=== PATIENT | female | born 1980 | race Caucasian/White ===

== ENCOUNTER 2021-04-14 13:41 | Observation (INO) | payer BC, MEDICAID, SELFPAY ==
[2021-04-14 14:06] VITALS: BP 129/65; PULSE 80
[2021-04-14 14:50] VITALS: TEMP 37.3
--- NOTE | 2021-04-14 14:53 | OBADM ---
This patient, Jm Mcneill, admitted to the OB room [facility] Post [facility] for observation. Patient/family oriented to hospital policies and general routines including ID bracelet, bed and alarms, visiting hours, pain management, procedures, bathroom and other care routines, personal items, smoking policy, room service/diet, and visiting hours. Patient/Family are encouraged to report perceived risks to care and to ask questions if they do not understand what they are told or what they should do.
[2021-04-14 15:06] LABS: Add Urine Microscopic? YES; Appearance Urine Clear (Clear); Bacteria Urine Trace /hpf; Bilirubin Urine Negative (Negative); Blood Urine Negative (Negative); Color Urine Yellow (Yellow); Glucose Urine UA Negative (Negative); Ketones Urine 1+ mg/dL (Negative); Leukocyte Esterase Ur Negative LEU/UL (Negative); Mucus Urine Rare /lpf; Nitrate Urine Negative (Negative); Protein Urine Negative (Negative); RBC Urine 0-2 /hpf (0-2); Specific Grav Ur 1.016 (1.001-1.035); Squamous Epithelial Cell Urine Occasional /hpf (Few); Urobilinogen Urine Negative mg/dL (<2.0); WBC Urine 0-3 /hpf
--- NOTE | 2021-04-14 15:47 | PC.NURSE ---
1515- called,informed pt came in from seeing MFM. She had told the office she has intermittent cramping and has been having pelvic pressure. Pt has had zero contractions here and stated she doesn't feel any pain once she got here and laid down. Pt wants a belly band to wear, is ordering that for her and gave order to discharge pt home.
--- NOTE | 2021-04-19 07:49 | P.PNOB_ITS ---
OB - Triage/Final Diagnosis Visit Information Comments/Additional reasons for admission: I have assessed the risk for this patient, Jm Mcneill, and determined that she would benefit from observation care. Evaluation Laboratory results: Laboratory Tests 04/14/21 14:35 Urine Color Yellow Urine Appearance Clear Urine pH 7.0 Ur Specific [place] 1.016 Urine Protein Negative Urine Glucose (UA) Negative Urine Ketones 1+ H Ur Blood (Man) Negative Urine Nitrate Negative Urine Bilirubin Negative Urine Urobilinogen Negative Leukocyte Esterase Rfl Negative Urine RBC 0-2 Urine WBC 0-3 Ur Squamous Epith Cells Occasional Urine Bacteria Trace Urine Mucus Rare Final Diagnosis (1) Pelvic pressure in : Code(s): O26.899 - Other specified related conditions, unspecified trimester; R10.2 - Pelvic and perineal pain Status: Acute
== END 2021-04-14 15:25 | disposition home or self-care (01) ==
PROVIDERS: Admitting Provider Obstetrics & Gynecology; PCP Physician Assistant; Visit Provider Obstetrics & Gynecology
DX: O26.893 Other specified pregnancy related conditions, third trimester (principal); R10.2 Pelvic and perineal pain; Z3A.31 31 weeks gestation of pregnancy
CPT/HCPCS: 81001; G0378; G0379

== ENCOUNTER 2021-04-29 14:15 | Outpatient (CLI) | payer BC, MEDICAID, SELFPAY ==
[2021-04-29 15:00] VITALS: BP 115/62; PULSE 98
--- NOTE | 2021-04-29 15:10 | PC.NURSE ---
1500- called,informed ROM plus is negative. NST reactive. Pt was sent over from office after stating she had a gush of fluid . Discharge orders received.
== END 2021-04-29 15:10 | disposition home or self-care (01) ==
LOC: ANHOBOP 15:18 → ANHLDR 15:20
PROVIDERS: PCP Physician Assistant; Referring Provider Obstetrics & Gynecology; Visit Provider Obstetrics & Gynecology
DX: O42.90 Premature rupture of membranes, unspecified as to length of time between rupture and onset of labor, unspecified weeks of gestation (principal); Z3A.00 Weeks of gestation of pregnancy not specified
CPT/HCPCS: 59025; 84112; 99199

== ENCOUNTER 2021-05-13 13:51 | Observation (INO) | payer BC, MEDICAID, SELFPAY ==
[2021-05-13 14:15] VITALS: BP 118/73; PULSE 78; BMI 42.3
[2021-05-13 14:30] VITALS: BP 117/70; PULSE 73
[2021-05-13 14:45] VITALS: BP 120/70; PULSE 75
[2021-05-13 15:00] VITALS: BP 109/74; PULSE 77
--- NOTE | 2021-05-13 15:11 | PC.NURSE ---
Dr Ibanez notified of adm c/o cramping and abd pain and that patient is feeling better after rest. OK to dc home.
[2021-05-13 15:15] VITALS: BP 123/87; PULSE 75
[2021-05-13 15:30] VITALS: BP 122/74; PULSE 88
--- NOTE | 2021-06-08 08:11 | PM.OBTRLD ---
OB - Triage/Final Diagnosis Visit Information Comments/Additional reasons for admission: I have assessed the risk for this patient, Jm Mcneill, and determined that she would benefit from observation care. Final Diagnosis (1) Abdominal pain: Code(s): R10.9 - Unspecified abdominal pain Status: Acute
== END 2021-05-13 15:50 | disposition home or self-care (01) ==
PROVIDERS: Admitting Provider Obstetrics & Gynecology; PCP Physician Assistant; Visit Provider Obstetrics & Gynecology
DX: O26.899 Other specified pregnancy related conditions, unspecified trimester (principal); R10.9 Unspecified abdominal pain; Z3A.00 Weeks of gestation of pregnancy not specified
CPT/HCPCS: G0378; G0379

== ENCOUNTER 2021-05-28 14:25 | Observation (INO) | payer BC, MEDICAID, SELFPAY ==
[2021-05-28 14:35] VITALS: BP 145/87; PULSE 86
--- NOTE | 2021-05-28 16:36 | OBADM ---
This patient, Jm Mcneill, admitted to the OB room Labor/Delivery/Recovery 118 for observation. Patient/family oriented to hospital policies and general routines including ID bracelet, bed and alarms, visiting hours, pain management, procedures, bathroom and other care routines, personal items, smoking policy, room service/diet, and visiting hours. Patient/Family are encouraged to report perceived risks to care and to ask questions if they do not understand what they are told or what they should do.
--- NOTE | 2021-06-28 21:56 | PM.OBTRLD ---
OB - Triage/Final Diagnosis Visit Information Comments/Additional reasons for admission: I have assessed the risk for this patient, Jm Mcneill, and determined that she would benefit from observation care. Final Diagnosis (1) False labor: Code(s): O47.9 - False labor, unspecified Status: Acute
== END 2021-05-28 16:44 | disposition home or self-care (01) ==
LOC: ANHLDR 06-01 10:45
PROVIDERS: Admitting Provider Obstetrics & Gynecology; PCP Physician Assistant; Visit Provider Obstetrics & Gynecology
DX: O47.1 False labor at or after 37 completed weeks of gestation (principal); Z3A.37 37 weeks gestation of pregnancy
CPT/HCPCS: 59025; G0378; G0379

== ENCOUNTER 2021-05-31 16:33 | Inpatient (IN) | payer BC, MEDICAID, SELFPAY ==
[2021-05-31 17:46] VITALS: BMI 42.5
[2021-05-31 17:55] LABS: Basophils Percent Auto 0.3 % (0.2-1.2); Eosinophils Absolute Auto 0.3 K/mm3 (0-0.3); Eosinophils Percent Auto 1.9 % (0-4.4); Hemoglobin 13.4 g/dL (12.0-15.0); Immature Granulocyte Absolute 0.07 K/mm3 (0.00-0.031); Immature Granulocyte Percent A 0.5 % (0-0.5); Lymphocytes Absolute Auto 2.62 K/mm3 (0.9-3.2); Lymphocytes Percent Auto 19.1 % (18.3-44.2); Mean Corpuscular HGB Conc 32.7 g/dl (32-36); Mean Corpuscular Hemoglobin 29.3 pg (26-34); Mean Corpuscular Volume 89.7 fl (80-100); Mean Platelet Volume 10.4 fl (7.4-10.4); Monocytes Absolute Auto 0.9 K/mm3 (0.1-0.6); Monocytes Percent Auto 6.3 % (2.6-8.5); Neutrophils Absolute Auto 9.9 K/mm3 (1.3-6.7); Neutrophils Percent Auto 71.9 % (45.5-73.1); Platelet Count Result 272 k/mm3 (150-375); Red Blood Count 4.57 M/mm3 (4.2-5.4); Red Cell Distribution Width 13.9 % (11.5-14.5); White Blood Count 13.7 K/mm3 (4.5-10.0)
[2021-05-31] MEDS: DINOPROSTONE 10 MG VAG INSERT VAGINAL (17:55)
[2021-05-31 18:02] VITALS: BP 129/70; PULSE 98
--- NOTE | 2021-05-31 18:05 | LDADM ---
This patient, Jm Mcneill, was admitted to Labor/Delivery/Recovery 103 on 05/31/21 at 16:33. Plans for labor, pain management and were discussed with patient. Patient/family oriented to hospital policies and general routines including ID bracelet, bed and alarms, visiting hours, pain management, procedures, bathroom and other care routines, personal items, smoking policy, room service/diet and guest tray routines, security routines, and visiting hours. Patient/Family are encouraged to report perceived risks to care and to ask questions if they do not understand what they are told or what they should do. See OBIX for further documentation.
[2021-05-31 18:20] LABS: Glucose Point of Care 81 mg/dl (65-105)
[2021-05-31 18:31] VITALS: BP 119/86; PULSE 83
[2021-05-31 19:01] VITALS: BP 119/86; PULSE 83
[2021-05-31 19:31] VITALS: BP 97/69; PULSE 83
[2021-05-31 20:01] VITALS: BP 117/79; PULSE 77
[2021-05-31 20:31] VITALS: BP 133/83; PULSE 79
[2021-05-31] MEDS: ZOLPIDEM TARTRATE (*CRX) 5 MG TABLET PO (22:54)
[2021-05-31 22:58] LABS: Glucose Point of Care 136 mg/dl (65-105)
[2021-05-31] MEDS: SERTRALINE HCL 50 MG TABLET 200 MG PO (23:10)
[2021-05-31] MEDS: INSULIN HUMAN NPH (*BKC) 100 UNITS/ML 20 UNITS SUB-Q (23:11)
[2021-06-01] VITALS (163 sets, daily range): BP systolic 94–202; BP diastolic 52–169; PULSE 60–140; RESP 18–19; TEMP 36–36.8; O2SAT 94–100
[2021-06-01 02:53] LABS: Glucose Point of Care 120 mg/dl (65-105)
[2021-06-01] MEDS: CALCIUM CARBONATE (TUMS) 500 MG (200 MG ELEMENTAL) PO (04:20)
[2021-06-01] MEDS: INSULIN HUMAN NPH (*BKC) 100 UNITS/ML 10 UNITS SUB-Q (06:38)
[2021-06-01] MEDS: fentaNYL CITRATE INJ (*CRX) 100 MCG/2 ML VIAL 50 MCG IV PUSH (06:46)
--- NOTE | 2021-06-01 07:42 | WPDANESEPP ---
Anes - Eval Pre Procedure Procedure: labor epidural Date/Time: 06/01/21 07:42 Surgeon: sera Preop Diagnosis: pain during labor Pre Op Diagnosis: Induction of Labor Patient Data Age: 41 Gender: F Height: 1.7 m Weight: 123 kg Last Vital Signs Temp 36.0 C L 06/01/21 06:48 Pulse 106 H 06/01/21 04:09 BP 141/97 H 06/01/21 04:09 Allergies Allergy/AdvReac Type Severity Reaction Status Date / Time No Known Allergies Allergy Verified 05/25/21 12:54 Home Medications Medication Instructions Recorded Confirmed Type Zyrtec 10 mg PO DAILY 05/25/21 05/28/21 History aspirin [Aspirin Low Dose] 81 mg PO DAILY 05/25/21 05/28/21 History famotidine [Pepcid] 20 mg PO BID 05/25/21 05/28/21 History prenat.vits,marcelino,[id number]-[id number]-[id number] 1 tablet PO DAILY 05/25/21 05/28/21 History sertraline 200 mg PO DAILY 05/25/21 05/31/21 History insulin detemir U-100 [Levemir 20 unit SUBCUT QAM 05/31/21 05/31/21 History FlexTouch U-100 Insuln] insulin detemir U-100 [Levemir 26 unit SUBCUT QPM 05/31/21 05/31/21 History FlexTouch U-100 Insuln] Laboratory Tests 05/31/21 05/31/21 05/31/21 17:45 17:45 17:45 WBC 13.7 K/mm3 H K/mm3 (4.5-10.0) RBC 4.57 M/mm3 M/mm3 (4.2-5.4) Hgb 13.4 g/dL g/dL (12.0-15.0) Hct 41.0 % % (37.0-47.0) MCV 89.7 fl fl (80-100) MCH 29.3 pg pg (26-34) MCHC 32.7 g/dl g/dl (32-36) RDW 13.9 % % (11.5-14.5) Plt Count 272 k/mm3 k/mm3 (150-375) MPV 10.4 fl fl (7.4-10.4) Immature Gran % (Auto) 0.5 % % (0-0.5) Neut % (Auto) 71.9 % % (45.5-73.1) Lymph % (Auto) 19.1 % % (18.3-44.2) [place] % (Auto) 6.3 % % (2.6-8.5) Eos % (Auto) 1.9 % % (0-4.4) Baso % (Auto) 0.3 % % (0.2-1.2) Lymph # (Auto) 2.62 K/mm3 K/mm3 (0.9-3.2) [place] # (Auto) 0.9 K/mm3 H K/mm3 (0.1-0.6) Eos # (Auto) 0.3 K/mm3 K/mm3 (0-0.3) Baso # (Auto) 0.0 K/mm3 K/mm3 (0.0-0.1) Abs Immat Gran (auto) 0.07 K/mm3 H K/mm3 (0.00-0.031) Absolute Neuts (auto) 9.9 K/mm3 H K/mm3 (1.3-6.7) Absolute Nucleated RBC 0.0 K/mm3 K/mm3 (0.0-0.012) Nucleated RBC % 0.0 % % (0.0-0.2) POC Capillary Glucose RPR Pending Blood Type B Positive Antibody Screen Negative 05/31/21 05/31/21 06/01/21 18:17 22:52 02:49 WBC RBC Hgb Hct MCV MCH MCHC RDW Plt Count MPV Immature Gran % (Auto) Neut % (Auto) Lymph % (Auto) [place] % (Auto) Eos % (Auto) Baso % (Auto) Lymph # (Auto) [place] # (Auto) Eos # (Auto) Baso # (Auto) Abs Immat Gran (auto) Absolute Neuts (auto) Absolute Nucleated RBC Nucleated RBC % POC Capillary Glucose 81 mg/dl mg/dl 136 mg/dl H mg/dl 120 mg/dl H mg/dl (65-105) (65-105) (65-105) RPR Blood Type Antibody Screen Patient hx anesthesia problems: none Family hx anesthesia problems: none PMFSH Past Medical History Medical History (Updated 06/01/21 @ 07:43 by Daniella Morrison CRNA) Depression affecting IUP (intrauterine ), incidental Morbid obesity with BMI of 40.0-44.9, adult Family History Family History (Updated 05/25/21 @ 13:00 by Cony Khalil RN) Sibling Anxiety Depression Mother Anxiety Depression Diabetes mellitus Grandparent Heart disease Diabetes mellitus Social History Social History Smoking status: Light tobacco smoker Second hand tobacco smoke exposure: Yes Substance use: former Last use: 08/2020 Spiritual care concerns: No Exam Day of Proc
--- NOTE | 2021-06-01 07:49 | PM.IMHP ---
H&P: HPI History of Present Illness Date/Time: 06/01/21 07:49 Chief Complaint: induction of labor Narrative: Jm is a 41yo at 38 weeks for IOL GDM noncompliant and relatively uncontrolled. Cervidil last night. FHT category 1. Given half of NPH insulin dose. Review of Systems Review of Systems: All systems reviewed & are unremarkable except as noted in HPI and below PMFSH Past Medical History Medical History (Updated 06/01/21 @ 07:43 by Daniella Morrison CRNA) Depression affecting IUP (intrauterine ), incidental Morbid obesity with BMI of 40.0-44.9, adult Family History Family History (Updated 05/25/21 @ 13:00 by Cony Khalil RN) Sibling Anxiety Depression Mother Anxiety Depression Diabetes mellitus Grandparent Heart disease Diabetes mellitus Social History Social History Smoking status: Light tobacco smoker Second hand tobacco smoke exposure: Yes Substance use: former Last use: 08/2020 Spiritual care concerns: No Meds Home Medications and Allergies Home Medications Medication Instructions Recorded Confirmed Type Zyrtec 10 mg PO DAILY 05/25/21 05/28/21 History aspirin [Aspirin Low Dose] 81 mg PO DAILY 05/25/21 05/28/21 History famotidine [Pepcid] 20 mg PO BID 05/25/21 05/28/21 History prenat.vits,marcelino,[id number]-menj-xsrwd 1 tablet PO DAILY 05/25/21 05/28/21 History sertraline 200 mg PO DAILY 05/25/21 05/31/21 History insulin detemir U-100 [Levemir 20 unit SUBCUT QAM 05/31/21 05/31/21 History FlexTouch U-100 Insuln] insulin detemir U-100 [Levemir 26 unit SUBCUT QPM 05/31/21 05/31/21 History FlexTouch U-100 Insuln] Allergies Allergy/AdvReac Type Severity Reaction Status Date / Time No Known Allergies Allergy Verified 05/25/21 12:54 Vital Signs Vital Signs - 24 hr 05/31/21 18:02 05/31/21 18:31 05/31/21 19:01 Temperature Pulse Rate 98 83 83 Blood Pressure 129/70 119/86 119/86 05/31/21 19:31 05/31/21 20:01 05/31/21 20:31 Temperature Pulse Rate 83 77 79 Blood Pressure 97/69 L 117/79 133/83 06/01/21 00:52 06/01/21 02:52 06/01/21 03:01 Temperature Pulse Rate 89 81 88 Blood Pressure 133/92 H 121/68 94/78 L 06/01/21 03:32 06/01/21 04:02 06/01/21 04:09 Temperature Pulse Rate 87 91 106 H Blood Pressure 202/166 H 183/143 H 141/97 H 06/01/21 06:48 Temperature 96.8 F L Pulse Rate Blood Pressure Exam Const: General: no acute distress Resp: Effort & Inspection: normal respiratory effort Auscultation: clear to auscultation bilaterally Cardio: Rate: regular rate Rhythm: regular rhythm GI: GI Palp: Yes Soft to palpation Extrem: General: normal to inspection H&P: Results Labs Labs: Short CBC 05/31/21 Range/Units 17:45 WBC 13.7 H (4.5-10.0) K/mm3 Hgb 13.4 (12.0-15.0) g/dL Hct 41.0 (37.0-47.0) % Plt Count 272 (150-375) k/mm3 Assessment and Plan Additional Plan Here for induction of labor-s/p cervidil, AROM clear this am, pitocin after breakfast GBS neg sliding scale FHT category 1
[2021-06-01] MEDS: OXYTOCIN 30 UNITS/NS 500 ML 30 UNITS/500 ML BAG 6 UNITS IV CONT (08:21)
[2021-06-01] MEDS: LACTATED RINGERS 1,000 ML 125 ML IV CONT (08:21)
[2021-06-01] MEDS: fentaNYL CITRATE INJ (*CRX) 100 MCG/2 ML VIAL IV PUSH (09:06)
[2021-06-01 09:11] LABS: Glucose Point of Care 87 mg/dl (65-105)
[2021-06-01 09:11] LABS: Glucose Point of Care 123 mg/dl (65-105)
[2021-06-01 11:08] LABS: Glucose Point of Care 78 mg/dl (65-105)
[2021-06-01] MEDS: TERBUTALINE SULFATE 1 MG/ML VIAL (11:43)
--- NOTE | 2021-06-01 12:00 | PM.OBPNLAB ---
Pain Control Date/time seen: 06/01/21 11;48 Pain control: epidural Comments: called to hospital for prolonged decel. IV had been kinked, and upon unkinking it, she had tachysystole with contractions back to back for 6 minutes. terbutaline x1 given. Baby was recovering as I arrived and FHTs were in 100s. With a few more minutes baseline was back to 120 with moderate variability. Pelvic Exam Dilation (cm): 6 Effacement (%): 90 station: -3 Amniotic membrane status: Ruptured Status status: Category ll Assessment and Plan Comments: pit off for at least 30 min until category 1 tracing IV tubing replaced so no further kinks FHT now reassuring. Good cervical change. Discussed POC with pt and RN. Also discussed CS with pt and SO in case necessary in future.
[2021-06-01 12:21] LABS: Glucose Point of Care 76 mg/dl (65-105)
[2021-06-01 13:31] LABS: Glucose Point of Care 81 mg/dl (65-105)
[2021-06-01 15:08] LABS: Rapid Plasma Reagin Non-Reactive (NonReactive)
[2021-06-01 15:44] LABS: Glucose Point of Care 72 mg/dl (65-105)
[2021-06-01 15:44] LABS: Glucose Point of Care 85 mg/dl (65-105)
[2021-06-01 17:08] LABS: Glucose Point of Care 72 mg/dl (65-105)
--- NOTE | 2021-06-01 18:07 | P.PCNOB_ITS ---
OB - Delivery Note Procedure Delivery date: 06/01/21 Procedure: events: Gestational Diabetes Induction method: AROM, per pitocin protocol and per cervidil protocol Delivery monitor: internal FHT and internal uterine Route of delivery: Laceration Description: Labial (right) Delivery repair: other (none) Specimen: Yes Quantitative Blood Loss (ml): 300 Anesthesia type: Epidural Disposition: floor Narrative: With adequate expulsive efforts by the mother, the baby's head was delivered OA. The baby's anterior shoulder was delivered under the pubic symphysis without difficulty. The posterior shoulder and the rest of the baby delivered without difficulty. The infant was placed on the mothers chest and suctioned and stimulated. The cord was clamped and cut after 30 seconds. Moth er and baby both stable. Baby Date of : 06/01/21 Time of : 17:47 Weeks of gestation at delivery: 38 gender: Male Weight (pounds): 6 Weight (ounces): 1 presentation: vertex Placenta delivery description: Spontaneous cord vessel description: 3 Vessels and Delayed Cord Clamping score one minute: 8 score five minutes: 9
[2021-06-01] MEDS: OXYTOCIN 30 UNITS/NS 500 ML 30 UNITS/500 ML BAG 125 UNITS IV CONT (18:27)
[2021-06-01] MEDS: IBUPROFEN 600 MG TABLET PO (19:35)
[2021-06-01] MEDS: WITCH HAZEL 40 PADS 1 PAD TOPICAL (19:36)
[2021-06-01] MEDS: BENZOCAINE 20% AER SPR (*SP) 56 GM CAN 1 SPRAY TOPICAL (19:36)
[2021-06-01] MEDS: SERTRALINE HCL 50 MG TABLET 200 MG PO (21:24)
[2021-06-01] MEDS: SIMETHICONE 80 MG TAB.CHEW PO (21:32)
[2021-06-02 00:34] VITALS: BP 110/74; PULSE 96; RESP 18; TEMP 36.7; O2SAT 97
[2021-06-02 04:00] VITALS: BP 131/86; PULSE 98; RESP 18; TEMP 36.6; O2SAT 100
[2021-06-02] MEDS: IBUPROFEN 600 MG TABLET PO ×3 (04:33→19:02)
[2021-06-02 05:08] LABS: Hematocrit 39.1 % (37.0-47.0); Hemoglobin 12.6 g/dL (12.0-15.0)
--- NOTE | 2021-06-02 07:31 | PM.OBPNVD ---
OB - PN: Subj Subjective Date/time seen: 06/02/21 07:31 Patient comments: no complaints and pain well controlled baby status: bottle feeding well OB - PN: Obj Data Labs CBC & Chem 7: 06/02/21 03:59 Labs: Laboratory Results - last 24 hr 05/31/21 06/01/21 06/01/21 17:45 06:31 09:08 Hgb Hct POC Capillary Glucose 87 123 H RPR Non-reactive 06/01/21 06/01/21 06/01/21 11:06 12:18 13:28 Hgb Hct POC Capillary Glucose 78 76 81 RPR 06/01/21 06/01/21 06/01/21 14:35 15:42 17:01 Hgb Hct POC Capillary Glucose 72 85 72 RPR 06/02/21 03:59 Hgb 12.6 Hct 39.1 POC Capillary Glucose RPR OB - PN A/P Plan day: 1 Plan: routine care Comments: circ done after consented Time Spent With Patient Time: Total time spent is greater than 50% in coordination of care (as documented) at patient's floor/unit and/or counseling patient: Time with patient: less than 15 minutes Exam Narrative: NAD abdomen soft, nontender, fundus firm below the umbilicus Extremities nontender, 1+ edema
[2021-06-02 07:40] VITALS: BP 121/85; PULSE 85; RESP 16; TEMP 36.4; O2SAT 99
--- NOTE | 2021-06-02 08:30 | PC.NURSE ---
Consult with pt. mother reports she has decided to switch to bottle feeding. Offered assist if mother wishes to attempt infant to breast. Reviewed engorgement/relief. Reviewed community resources on the [employer] website and in the Mom/Baby guide. Information on outpatient services provided. Mother has no further questions at this time.
--- NOTE | 2021-06-02 09:22 | WPDANLDPN2 ---
Anes-Prog Note L&D Date/Time: 06/02/21 09:22 Comfortable throughout: labor and delivery Neuraxial method: epidural Epidural/Spinal procedure site: clean & non-tender Neuro status: Neuro function grossly intact. Cardiovascular status: normal Respiratory status: normal Airway patency: baseline Mental status: baseline Post-Op hydration status: normal Vital Signs: Last Vital Signs Temp 36.4 C 06/02/21 07:40 Pulse 85 06/02/21 07:40 Resp 16 06/02/21 07:40 BP 121/85 06/02/21 07:40 Pulse Ox 99 06/02/21 07:40 Pain score (VAS): 0 I/O: Intake & Output 06/01/21 06/02/21 06/02/21 23:59 07:59 15:59 Output Total 75 Balance -75 Post-procedural complaints: none Patient feedback: Patient satisfied with anesthetic care.
[2021-06-02] MEDS: MULTIVIT/MIN/PREN/FOL AC/IRON TABLET 1 TAB PO (09:41)
[2021-06-02] MEDS: DOCUSATE SODIUM 100 MG CAPSULE PO ×2 (09:41→16:33)
[2021-06-02] MEDS: ACETAMINOPHEN 325 MG TABLET 650 MG PO ×3 (09:41→22:06)
[2021-06-02] MEDS: LORATADINE 10 MG TABLET PO (09:55)
[2021-06-02] MEDS: diphenhydrAMINE HCl CAP 25 MG CAPSULE PO (09:55)
[2021-06-02 11:46] VITALS: BP 124/80; PULSE 90; RESP 16; TEMP 36.8; O2SAT 99
[2021-06-02 16:45] VITALS: BP 123/79; PULSE 87; RESP 12; TEMP 36.9; O2SAT 99
[2021-06-02 20:00] VITALS: BP 125/71; PULSE 85; RESP 18; TEMP 36.4; O2SAT 96
[2021-06-02] MEDS: SERTRALINE HCL 50 MG TABLET 200 MG PO (22:07)
[2021-06-03 08:00] VITALS: BP 127/66; PULSE 82; RESP 18; TEMP 37; O2SAT 100
--- NOTE | 2021-06-03 09:10 | PM.OBPNVD ---
OB - PN: Subj Subjective Date/time seen: 06/03/21 09:10 Patient comments: no complaints baby status: doing well OB - PN: Obj Data Labs CBC & Chem 7: 06/02/21 03:59 OB - PN A/P Plan day: 2 Plan: routine care and discharge home Time Spent With Patient Time: Total time spent is greater than 50% in coordination of care (as documented) at patient's floor/unit and/or counseling patient: Review of Systems Review of Systems: All systems reviewed & are unremarkable except as noted in HPI and below Exam Const: General: cooperative Psych: Affect: normal affect Attitude: cooperative Thought process: Normal thought process present Thought content: Yes Normal thought content present
[2021-06-03] MEDS: IBUPROFEN 600 MG TABLET PO (09:50)
[2021-06-03] MEDS: DOCUSATE SODIUM 100 MG CAPSULE PO (09:50)
[2021-06-03] MEDS: WITCH HAZEL 40 PADS 1 PAD TOPICAL (09:52)
[2021-06-03] MEDS: BENZOCAINE 20% AER SPR (*SP) 56 GM CAN 1 SPRAY TOPICAL (09:52)
[2021-06-03 09:54] VITALS: PULSE 82; RESP 18; O2SAT 100
--- NOTE | 2021-06-03 14:54 | PM.OBDSVD ---
DS: Admitting Diagnosis Discharge Date 06/03/21 Admitting Diagnosis GDM OB - DS: Summary OB Procedures : None OB Procedures Intrapartum: Spontaneous Vag Delivery OB Procedures: : None Time Spent with Patient Time attestation: Total time spent providing and/or coordinating discharge services: Discharge Plan Discharge Attending physician on discharge: Maria Eugenia Haney Consulting providers: Yuliana Campos Discharging Clinician: Yuliana Campos Patient Disposition: Home, Self-Care Activity: pelvic rest Diet: regular Discharge Instructions: Education: Mom and Baby Guide Given to: Mother Follow-Up: Call your delivering provider's office for an appointment to be seen in: 4 Weeks Mom and baby should come to the [facility] for the follow-up appointment. Appointment Date/Time: Friday, June 04, 2021 at 9:00 am What to expect at your follow-up visit: Blood Pressure Check Physical Assessment Call [phone] if you are unable to keep your appointment time. BREAST CARE: * Wear a snug supportive bra. * For engorgement discomfort: Bottle Feeding: * May apply ice packs *No stimulation to breasts, do NOT pump excess milk from breasts, this will cause body to make more milk EPISIOTOMY/PERINEAL CARE: * Until bleeding stops, use your natalia bottle after urinating * Change your pad frequently throughout the day * You may take sitz baths several times a day (fill your bathtub with warm water and soak for 20 minutes.) Do NOT bathe in the water * No tub baths until seen by your physician - You may shower ACTIVITY: * Rest as much as possible. * Do not exercise or lift anything heavier than your baby (such as laundry or other children.) * Avoid stairs or driving as much as possible. * Do not put anything into the vagina. No douching, tampons, or sexual activity until seen by physician. NOTIFY PHYSICIAN IF YOU HAVE ANY QUESTIONS OR IF ANY OF THE FOLLOWING SYMPTOMS OCCUR: * If your vaginal area becomes red, swollen, or more painful than what you have experienced in the hospital. * If your vaginal bleeding becomes foul smelling. * If your vaginal bleeding becomes more heavy than a period or if your bleeding changes from pink to bright red. However, you may pass an occasional walnut-sized clot once or twice for the first week . * If you experience a sharp, shooting pain in your calves. * If you discover a hard, reddened area on your breast or if you experience flu-like symptoms. DIET: * Eat regular, well-balanced meals. * Drink plenty of fluids daily. Patient Instructions: Vaginal Delivery (DC) Stand Alone Forms: General Discharge Information Follow-up/Referrals: Maria Eugenia Haney MD [Physician] - 4 Weeks Discharge Medications: Continued sertraline 100 mg Tablet 200 mg PO DAILY RF: 0 famotidine [Pepcid] 20 mg Tablet 20 mg PO BID RF: 0 prenat.vits,marcelino,[id number] Tablet 1 tablet PO DAILY RF: 0 Zyrtec 10 mg Capsule 10 mg PO DAILY RF: 0 Levemir FlexTouch U-100 Insuln 100 unit/mL (3 mL) insulin pen 26 unit SUBCUT QPM RF: 0 Levemir FlexTouch U-100 Insuln 100 unit/mL (3 mL) insulin pen 20 unit SUBCUT QAM RF: 0 Discontinued aspirin [Aspirin Low Dose] 81 mg Tablet,Delayed Release (Dr/Ec) 81 mg PO DAILY RF: 0 Date of admission: 05/31/21 16:33 Primary Care Provider: Savanna,Izaiah Cano Admitting Provider: Maria Eugenia Haney Attending physician on admission: Maria Eugenia Haney Condition: Stable
[2021-06-04 09:21] VITALS: BP 121/85; PULSE 89; RESP 20; TEMP 36.8; O2SAT 100
== END 2021-06-03 11:07 | disposition home or self-care (01) | DRG 807 ==
LOC: ANHLDR 06-01 13:15 → ANHOB2 06-01 21:43
PROVIDERS: Admitting Provider Obstetrics & Gynecology; PCP Physician Assistant; Visit Provider Obstetrics & Gynecology
DX: O24.429 Gestational diabetes mellitus in childbirth, unspecified control (principal); Z37.0 Single live birth; Z3A.38 38 weeks gestation of pregnancy; O36.8330 Maternal care for abnormalities of the fetal heart rate or rhythm, third trimester, not applicable or unspecified; O99.214 Obesity complicating childbirth; E66.01 Morbid (severe) obesity due to excess calories; O99.344 Other mental disorders complicating childbirth; F32.9 Major depressive disorder, single episode, unspecified
CPT/HCPCS: 36415; 82948; 85014; 85018; 85025; 86592; 86850; 86900; 86901; A9270; J1815; J2590; J2795; J3010; J3105; J7120

== ENCOUNTER 2021-06-14 13:23 | Outpatient (CLI) | payer BC, MEDICAID, SELFPAY ==
[2021-06-14 14:50] LABS: SARS-CoV-2 RNA PCR Positive (Negative)
== END 2021-06-14 13:24 | disposition home or self-care (01) ==
LOC: CHSLAB 13:26
PROVIDERS: PCP Physician Assistant; Visit Provider Physician Assistant
DX: U07.1 COVID-19 (principal)
CPT/HCPCS: C9803; U0003; U0005

== ENCOUNTER 2021-07-16 13:27 | Outpatient (CLI) | payer BC, MEDICAID, SELFPAY ==
--- NOTE | 2021-07-16 13:29 | ECG_ITS ---
Measurements Intervals [place] Rate: 73 P: 40 CA: 155 QRS: 40 QRSD: 89 T: 30 QT: 348 QTc: 385 Interpretive Statements SINUS RHYTHM DELAYED PRECORDIAL R/S TRANSITION ABNORMAL ECG Electronically Signed On 07-16-2021 13:53:09 CDT by Epifanio Bustillos D.O.
== END 2021-07-16 13:28 | disposition home or self-care (01) ==
LOC: ANHSURGERY 13:29
PROVIDERS: PCP Physician Assistant; Visit Provider Obstetrics & Gynecology
DX: F17.210 Nicotine dependence, cigarettes, uncomplicated (principal); Z01.818 Encounter for other preprocedural examination; R94.31 Abnormal electrocardiogram [ECG] [EKG]
CPT/HCPCS: 93005

== ENCOUNTER 2021-07-19 02:02 | Day surgery (SDC) | payer BC, MEDICAID, SELFPAY ==
[2021-07-12 15:22] VITALS: BMI 40.7
--- NOTE | 2021-07-12 15:36 | PC.NURSE ---
Report to the Outpatient Waiting Room, entrance under the green pavilion located off [facility], at time 6:30 on date 07/19/21. OR Time: 8:30. - You and your visitor will be asked a series of questions to screen for COVID 19 for your protection. - A mask is required within the hospital. - Only one visitor is allowed at this time. Patient visitors will be guided where to wait when not with patient. Preoperative COVID Testing Requirements: No COVID Test needed if: (proof is required; if not received patient will have Rapid Test prior to entry) - Patient has received COVID Vaccine at least 14 days prior to procedure date or - Patient has positive COVID test result within last 90 days of surgery date. COVID Test needed if above criteria is not met If not COVID vaccinated a COVID test must be conducted within 72 hours of surgery and patient is asked to isolate self from time of testing until procedure. You will go to the [facility] for your COVID testing. The [facility] is located at the corner of [address] [facility]. You will only be called if COVID results are positive and your surgeon may reschedule your elective surgery date. Patients may have clear liquids (water, carbonated beverages, clear teas, apple juice) until 3 hours prior to surgery with a maximum of 20 ounces. - No food from midnight until time of surgery - Infants may have breast milk until 4 hours before surgery, formula 6 hours prior to surgery. - Children will be allowed to drink immediately following surgery. If applicable, please bring a bottle or sippy cup to assist with drinking. Juice, water, soda, and popsicles are readily available. For infants on formula, please bring formula the day of surgery. Pacifiers are allowed. Take the following medications with a SIP of water the morning of surgery: SERTRALINE Medications to discontinue per physician N/A Date to take last doseN/A Please no make-up, nail [place], hairspray, perfume, deodorant, or body powder the day of surgery. No jewelry (including any body piercings) or valuables the day of surgery, leave them at home. Please take a shower or bath the night before, or the morning of, surgery with an antibacterial soap. Wear comfortable, loose fitting clothing. Children are encouraged to wear pajamas. - Jewelry must be removed prior to entering the operating room. Rings and piercings that are not removed may be cut off. - The hospital will not accept responsibility for valuables. - Please leave all valuables, including medications, at home the day of surgery. If you are going home after surgery, a licensed class b truck driver must drive you home. - NO public transportation without another adult. - We recommend that an adult stay with you for 24 hours following discharge. - We also recommend that you do not drive, make important decision, drink alcoholic beverages, or take any drugs that were not prescribed by your health care provider for at least 24 hours after your discharge time. For Pediatric surgeries, we recommend two adults accompany the child home (only one inside the building at this time). Follow any additional instructions given to you from your surgeon. Telephone instructions given to CHAITANYA IBARRA and asked if any additional questions and then verbalized understanding. Patient advised to call surgeon office or pre surgery nurse liaison [phone] if any additional questions.
[2021-07-19] VITALS (7 sets, daily range): BP systolic 111–119; BP diastolic 70–82; PULSE 57–94; RESP 16–18; TEMP 36–36.6; O2SAT 94–99
[2021-07-19] MEDS: ACETAMINOPHEN 500 MG TABLET 1000 MG PO (06:54)
[2021-07-19] MEDS: KETOROLAC 15 MG/ML VIAL (*BKC) IV PUSH (07:06)
--- NOTE | 2021-07-19 07:19 | PM.IMHP ---
H&P: HPI History of Present Illness Date/Time: 07/19/21 07:19 Chief Complaint: sterilization Narrative: Jm is a 41yo here for salpingectomy. Does not desire more children. Review of Systems Review of Systems: All systems reviewed & are unremarkable except as noted in HPI and below PMFSH Past Medical History Medical History (Updated 06/28/21 @ 21:56 by Víctor Ibanez MD) Depression affecting IUP (intrauterine ), incidental Morbid obesity with BMI of 40.0-44.9, adult Family History Family History (Updated 05/25/21 @ 13:00 by Cony Khalil RN) Sibling Anxiety Depression Mother Anxiety Depression Diabetes mellitus Grandparent Heart disease Diabetes mellitus Social History Social History Smoking packs per day: 1 Smoking cigarettes per day: 20.0 Years smoked: 25 Smoking pack-years: 25.00 Smoking status: Light tobacco smoker Tobacco type: cigarettes Second hand tobacco smoke exposure: Yes Alcohol intake: never Substance use: current Substance use type: marijuana Other substance usage details: SMOKE Last use: 07/11/21 Living arrangements: with family Spiritual care concerns: No Meds Home Medications and Allergies Home Medications Medication Instructions Recorded Confirmed Type Zyrtec 10 mg PO DAILY 05/25/21 07/19/21 History sertraline 200 mg PO DAILY 05/25/21 07/19/21 History Allergies Allergy/AdvReac Type Severity Reaction Status Date / Time No Known Allergies Allergy Verified 07/19/21 06:52 Vital Signs Vital Signs - 24 hr 07/19/21 06:15 Temperature 98 F Pulse Rate 66 Respiratory Rate 16 Blood Pressure 118/70 Pulse Oximetry 99 Exam Const: General: no acute distress Resp: Effort & Inspection: normal respiratory effort Auscultation: clear to auscultation bilaterally Cardio: Rate: regular rate Rhythm: regular rhythm GI: GI Palp: Yes Soft to palpation Extrem: General: normal to inspection Assessment and Plan Additional Plan Plan laparascopic bilateral salpingectomy tubal papers signed discussed RBA, including increased risks related to her weight. She is certain.
[2021-07-19] MEDS: LACTATED RINGERS 1,000 ML 30 ML IV CONT ×2 (07:42→09:42)
--- NOTE | 2021-07-19 07:42 | P.PNAN_ITS ---
Anes - Initial Pre Proc Eval Procedure: Operation Date: 07/19/21 08:30 Proposed Procedures p Laparoscopic Bilateral Salpingectomy - Maria Eugenia Haney MD Date/Time: 07/19/21 07:42 Surgeon: Maria Eugenia Haney MD Pre Op Diagnosis: sterilization Patient Data Age: 41 Gender: F Height: 1.7 m Weight: 123 kg Last Vital Signs Temp 36.6 C 07/19/21 06:15 Pulse 66 07/19/21 06:15 Resp 16 07/19/21 06:15 BP 118/70 07/19/21 06:15 Pulse Ox 99 07/19/21 06:15 Allergies Allergy/AdvReac Type Severity Reaction Status Date / Time No Known Allergies Allergy Verified 07/19/21 06:52 Home Medications Medication Instructions Recorded Confirmed Type Zyrtec 10 mg PO DAILY 05/25/21 07/19/21 History sertraline 200 mg PO DAILY 05/25/21 07/19/21 History Patient hx anesthesia problems: none Family hx anesthesia problems: none Results Review: All pre-operative results and documents have been reviewed as part of the pre-operative evaluation. [facility] Past Medical History Medical History Depression affecting IUP (intrauterine ), incidental Morbid obesity with BMI of 40.0-44.9, adult Family History Family History Sibling Anxiety Depression Mother Anxiety Depression Diabetes mellitus Grandparent Heart disease Diabetes mellitus Social History Social History Smoking packs per day: 1 Smoking cigarettes per day: 20.0 Years smoked: 25 Smoking pack-years: 25.00 Smoking status: Light tobacco smoker Tobacco type: cigarettes Second hand tobacco smoke exposure: Yes Alcohol intake: never Substance use: current Substance use type: marijuana Other substance usage details: SMOKE Last use: 07/11/21 Living arrangements: with family Spiritual care concerns: No Anes - Eval Final PreProcedure Day of Procedure 07/19/21 07:42 Patient weight: morbidly obese Heart: regular rate and rhythm Lungs: clear to auscultation Airway: Mallampati scale class II Neurological: alert and oriented Last oral intake: >/= 8 hours ASA classification: III Emergent: no Anesthetic plan: proceed Anesthesia type and monitoring: general ETT and standard monitoring Results Review: All pre-operative results and documents have been reviewed as part of the pre-operative evaluation. Informed Consent: The patient's anesthetic plan and its attendant risks and benefits were discussed with the patient/family/POA. Questions were solicited and answers provided to the satisfaction of the patient/family/POA.
--- NOTE | 2021-07-19 08:38 | WPDHPUPDATE1 ---
History and Physical Update Update Date/Time: 07/19/21 08:38 History and Physical has been reviewed, including an updated exam of the patient. There are NO changes in the patient's condition. Risks, benefits, and alternatives have been discussed and questions answered. Patient agrees to proceed with procedure.
[2021-07-19] MEDS: BUPIVACAINE HCL 0.25% PF 30 ML VIAL INFILTRATE (09:20)
--- NOTE | 2021-07-19 09:35 | W.PM.PROC2 ---
Procedure Note - Detailed Date of Procedure 07/19/21 Pre-op Diagnosis sterilization Post-op Diagnosis same Procedure Performed Laparoscopic Bilateral Salpingectomy Surgeon Maria Eugenia Haney MD Anesthesia general Indications undesired future fertility Description of Procedure The patient was taken to the OR and placed in dorthal lithotomy in [facility]. She received general anesthesia. A speculum was placed and the cervix grasped with a single tooth tenaculum and an acorn uterine manipulator placed easily. A mora catheter had previously been placed. She had received preoperative antibiotics. A 5mm subumbilical skin incision was made and using direct visualization, the trocar was inserted intraperitoneally. The abdomen was insufflated and the pelvis inspected with the above findings. Bilateral 5mm incisions were made and trocars were placed under direct visualization. The right tube was grasped and elevated and using the Ligasure device, the tube was sequentially cauterized and ligated and removed through the trocar and sent to pathology. Similarly, on the left, the tube was removed using the Ligasure device. Hemostasis was noted. The upper abdomen was inspected and noted to be normal. The trocars were removed and the Co2 was removed from the abdomen. The skin was closed with 4-0 vicryl and steri strips. The patient tolerated the procedure well and was taken to the recovery room in stable condition. EBL 5cc. Estimated Blood Loss 5 IV Fluids 1,200 Drains No Packing No Pathology yes Complications No immediate complications Condition stable Disposition same day
[2021-07-19] MEDS: fentaNYL CITRATE INJ (*CRX) 100 MCG/2 ML VIAL 25 MCG IV PUSH ×2 (10:07→10:12)
[2021-07-19] MEDS: oxyCODONE HCL (*CRX) 5 MG TAB IR PO (10:36)
== END 2021-07-19 11:20 | disposition home or self-care (01) ==
PROVIDERS: PCP Physician Assistant; Visit Provider Obstetrics & Gynecology
PROC: (CPT 49320; principal; 2021-07-19 08:30)
DX: Z30.2 Encounter for sterilization (principal); F17.290 Nicotine dependence, other tobacco product, uncomplicated; F12.90 Cannabis use, unspecified, uncomplicated; E66.01 Morbid (severe) obesity due to excess calories; Z68.41 Body mass index [BMI] 40.0-44.9, adult
CPT/HCPCS: 58661; 88302; A9270; J0330; J1100; J1885; J2250; J2405; J2704; J3010; J7120

== ENCOUNTER 2023-05-13 14:08 | Emergency (ER) | payer OTHER, SELFPAY ==
--- NOTE | ~2023-05-13 | XR_ITS ---
Right foot Technique: AP, oblique, and lateral views were obtained. Clinical History: Injury Findings: There is an oblique, comminuted, fracture of the mid to distal fifth metatarsal shaft, with displacement of approximately 5 mm.. Joint spaces are preserved without erosive or degenerative holliday ge. Soft tissues are unremarkable. Impression: Oblique, comminuted, displaced fracture of the mid to distal fifth metatarsal shaft, as detailed nate ayala. Reviewed, dictated and finalized at location M. Impression: Oblique, comminuted, displaced fracture of the mid to distal fifth metatarsal s haft, as detailed above.
--- NOTE | ~2023-05-13 | XR_ITS ---
Right ankle Technique: AP, oblique, and lateral views were obtained. Clinical History: Injury Findings: There is a partially imaged oblique fracture of the fifth metatarsal shaft, with comminutio n. No other fracture or dislocation seen about the ankle. There is lateral soft tissue swelling of th e ankle. Ankle mortise and other joint spaces are intact. Impression: Partially imaged oblique, comminuted fracture the fifth metatarsal shaft. Lateral soft tissue swelling at the ankle. Reviewed, dictated and finalized at location . Impression: Partially imaged oblique, comminuted fracture the fifth metatarsal shaft. Lateral soft tissue swelling at the ankle.
[2023-05-13 14:12] VITALS: BP 115/74; PULSE 92; RESP 20; TEMP 37.1; O2SAT 98
--- NOTE | 2023-05-13 14:13 | ED_ITS ---
HPI - Trauma General Chief Complaint: Extremity Injury, Lower Stated Complaint: fall right ankle pain Time Seen by Provider: 05/13/23 14:11 Related Data Home Medications Medication Instructions Recorded Confirmed cetirizine 10 mg capsule (Zyrtec) 10 mg PO DAILY 05/25/21 07/19/21 bupropion HCl 300 mg 24 hr tablet, 300 mg PO DAILY 05/13/23 05/13/23 extended release fluoxetine 40 mg capsule 40 mg PO DAILY 05/13/23 05/13/23 gabapentin 300 mg capsule 300 mg PO DAILY 05/13/23 05/13/23 Allergies Allergy/AdvReac Type Severity Reaction Status Date / Time No Known Allergies Allergy Verified 05/13/23 14:31 [facility] Past Medical History Medical History Depression affecting IUP (intrauterine ), incidental Morbid obesity with BMI of 40.0-44.9, adult Family History Family History Sibling Anxiety Depression Mother Anxiety Depression Diabetes mellitus Grandparent Heart disease Diabetes mellitus Social History Social History Smoking packs per day: 1 Smoking cigarettes per day: 20.0 Years smoked: 25 Smoking pack-years: 25.00 Smoking status: Current every day smoker Tobacco type: cigarettes Second hand tobacco smoke exposure: Yes Alcohol intake: never Substance use: current Substance use type: marijuana Other substance usage details: SMOKE Last use: 07/11/21 Living arrangements: with family Gender identity (if verbalized by the patient): Female Sexual Orientation (if Verbalized by the Patient): Straight or Heterosexual Spiritual care concerns: No Discharge Plan Discharge Prescriptions: No Action fluoxetine 40 mg capsule 40 mg PO DAILY gabapentin 300 mg capsule 300 mg PO DAILY bupropion HCl 300 mg tablet extended release 24 hr 300 mg PO DAILY Zyrtec 10 mg Capsule 10 mg PO DAILY Follow-up/Referrals: UNKNOWN,DOCTOR [Primary Care Provider] -
--- NOTE | 2023-05-13 14:42 | ED.LOWEXIN ---
HPI - Extremity Injury (Lower) General Chief Complaint: Extremity Injury, Lower Stated Complaint: fall right ankle pain Time Seen by Provider: 05/13/23 14:11 Mode of arrival: ambulatory Limitations: no limitations History of Present Illness HPI Narrative: 43-year-old jumped off tailgate of a truck 1 hour ago and landed on right ankle which subsequently twisted. No head or spine injury. She presents to the ER with -- right ankle/ foot pain. -- Abrasion over left knee. Patient is not up-to-date on tetanus. MD complaint: ankle injury Onset (ago): hour(s) ( 1 hour ago) Injury: Right: ankle Place: street/outdoors Severity: severe Relieving factors: nothing Exacerbating factors: nothing Context: fall Other symptoms: none Related Data Home Medications Medication Instructions Recorded Confirmed cetirizine 10 mg capsule (Zyrtec) 10 mg PO DAILY 05/25/21 05/13/23 bupropion HCl 300 mg 24 hr tablet, 300 mg PO DAILY 05/13/23 05/13/23 extended release fluoxetine 40 mg capsule 40 mg PO DAILY 05/13/23 05/13/23 gabapentin 300 mg capsule 300 mg PO DAILY 05/13/23 05/13/23 Allergies Allergy/AdvReac Type Severity Reaction Status Date / Time acetaminophen [From Vicodin] AdvReac Hives Verified 05/13/23 15:03 hydrocodone [From Vicodin] AdvReac Hives Verified 05/13/23 15:03 Review of Systems Review of Systems: All systems reviewed & are unremarkable except as noted in HPI and below Constitutional: Constitutional: Reports as per HPI and Reports no additional constitutional complaints Eyes: Eyes: Reports as per HPI and Reports no additional eye complaints ENT: Reports system reviewed and no additional complaints, except as documented and Reports as per HPI Cardiovascular: Cardiovascular: Reports as per HPI and Reports no additional cardiovascular complaints Respiratory: Respiratory: Reports as per HPI and Reports no additional respiratory complaints Gastrointestinal: Gastrointestinal: Reports as per HPI and Reports no additional gastrointestinal complaints Genitourinary: Genitourinary: Reports no additional female genitourinary complaints Musculoskeletal: Musculoskeletal: Reports no additional musculoskeletal complaints and Reports as per HPI Comments: chronic low back pain Integumentary/Breasts: Comments: abrasion over left knee Neurologic: Reports system reviewed and no additional complaints, except as documented and Reports as per HPI Psychiatric: Psychiatric: Reports no additional psychiatric complaints and Reports as per HPI Endocrine: Endocrine: Reports no additional endocrine complaints and Reports as per HPI Hematologic/Lymphatic: Hematologic/Lymphatic: Reports no additional hematologic/lymphatic complaints and Reports as per HPI Allergic/Immunologic: Allergic/Immunologic: Reports no additional allergic/immunologic complaints and Reports as per HPI PMFSH Past Medical History Medical History Depression affecting IUP (intrauterine ), incidental Morbid obesity with BMI of 40.0-44.9, adult Family History Family History Sibling Anxiety Depression Mother Anxiety Depression Diabetes mellitus Grandparent Heart disease Diabetes mellitus Social History Social History Smoking packs per day: 1 Smoking cigarettes per day: 20.0 Years smoked: 25 Smoking pack-years: 25.00 Smoking status: Current every day smoker Tobacco type: cigarettes Second hand tobacco smoke exposure: Yes Alcohol intake: never Substance use: current Substance use type: marijuana Other substance usage details: SMOKE Last use: 07/11/21 Living arrangements: with family Gender identity (if verbalized by the patient): Female Sexual Orientation (if Verbalized by the Patient): Straight or Heterosexual Spiritual care con
[2023-05-13] MEDS: TETANUS,DIPHTHERIA,AC PERTUSSIS ADULT 0.5 ML (ADACEL) IM (14:59)
[2023-05-13] MEDS: KETOROLAC 30 MG/ML VIAL (*BKC) IM (15:00)
[2023-05-13 15:10] VITALS: BP 120/72; PULSE 89; RESP 20; O2SAT 98
[2023-05-13] MEDS: ONDANSETRON HCL ODT 4 MG TABLET PO (15:46)
[2023-05-13] MEDS: HYDROmorphone HCL INJ (*CRX) 2 MG/ML VIAL 0.5 MG IM (15:46)
[2023-05-13 15:50] VITALS: BP 132/80; PULSE 72; RESP 20; TEMP 37; O2SAT 98
== END 2023-05-13 16:00 | disposition home or self-care (01) ==
PROVIDERS: Emergency Provider Internal Medicine Critical Care Medicine
DX: S92.351A Displaced fracture of fifth metatarsal bone, right foot, initial encounter for closed fracture (principal); F17.210 Nicotine dependence, cigarettes, uncomplicated; Z79.899 Other long term (current) drug therapy; Z23 Encounter for immunization; X50.0XXA Overexertion from strenuous movement or load, initial encounter; Y92.812 Truck as the place of occurrence of the external cause
CPT/HCPCS: 73610; 73630; 90471; 90715; 96372; 99284; A9270; J1170; J1885; L2112

== ENCOUNTER 2023-06-15 15:00 | Emergency (ER) | payer OTHER, SELFPAY ==
--- NOTE | ~2023-06-15 | XR_ITS ---
XR shoulder RT min 2V DATE: 06/15/2023 15:30 INDICATION: Right shoulder pain TECHNIQUE: 4 views COMPARISON: None FINDINGS: No fracture or dislocation, periosteal reaction or bone destruction or abnormal soft tissue calcification. IMPRESSION: Negative Reviewed, dictated and finalized at location L. IMPRESSION: Negative
[2023-06-15 15:00] VITALS: BP 124/93; PULSE 94; RESP 18; O2SAT 97
[2023-06-15 15:08] VITALS: BP 124/93; PULSE 96; RESP 17; TEMP 36.4; O2SAT 99
--- NOTE | 2023-06-15 15:45 | ED.UPPEXIN ---
HPI - Extremity Injury (Upper) General Chief Complaint: Extremity Injury, Lower Stated Complaint: right shoulder pain Time Seen by Provider: 06/15/23 15:14 Source: patient and family Mode of arrival: ambulatory History of Present Illness HPI narrative: this is a 43-year-old female that jumped out of her truck approximately a month ago early in May and was seen in the ER at that time and had a fracture of her right ankle, has seen Orthopedics, currently in a cast. The patient since then has been complaining of right shoulder pain and discomfort with range of motion. complaint: injury to: right Onset (ago): month(s) Other Extremity Injury: Right: shoulder Severity scale (1-10): 4 Related Data Home Medications Medication Instructions Recorded Confirmed cetirizine 10 mg capsule (Zyrtec) 10 mg PO DAILY 05/25/21 05/13/23 bupropion HCl 300 mg 24 hr tablet, 300 mg PO DAILY 05/13/23 05/13/23 extended release fluoxetine 40 mg capsule 40 mg PO DAILY 05/13/23 05/13/23 gabapentin 300 mg capsule 300 mg PO DAILY 05/13/23 05/13/23 Allergies Allergy/AdvReac Type Severity Reaction Status Date / Time acetaminophen [From Vicodin] AdvReac Hives Verified 06/15/23 15:05 hydrocodone [From Vicodin] AdvReac Hives Verified 06/15/23 15:05 Review of Systems Review of Systems: All systems reviewed & are unremarkable except as noted in HPI and below PMFSH Past Medical History Medical History Depression affecting IUP (intrauterine ), incidental Morbid obesity with BMI of 40.0-44.9, adult Family History Family History Sibling Anxiety Depression Mother Anxiety Depression Diabetes mellitus Grandparent Heart disease Diabetes mellitus Social History Social History Smoking packs per day: 1 Smoking cigarettes per day: 20.0 Years smoked: 25 Smoking pack-years: 25.00 Smoking status: Current every day smoker Tobacco type: cigarettes Second hand tobacco smoke exposure: Yes Alcohol intake: never Substance use: current Substance use type: marijuana Other substance usage details: SMOKE Last use: 07/11/21 Living arrangements: with family Gender identity (if verbalized by the patient): Female Sexual Orientation (if Verbalized by the Patient): Straight or Heterosexual Spiritual care concerns: No Exam Const: General: healthy appearing and no acute distress Nutritional Appearance: well nourished Orientation/consciousness: patient oriented x3 Neck: Neck: normal visual inspection, no lymphadenopathy and no meningeal signs Chest: Chest palpation & inspection: normal inspection of the chest Resp: Effort & Inspection: normal respiratory effort Auscultation: clear to auscultation bilaterally Cardio: Rate: regular rate Rhythm: regular rhythm GI: GI Palp: Yes Soft to palpation Skin: General skin exam: normal color Rashes: no rashes Neuro: General: patient oriented x3 and moves all extremities Extrem: Other: Tenderness in the bicipital groove of right shoulder with some mildly decreased range of motion with active and passive movement with no radiculopathy Course Course Emergency Course: patient saw her primary care and treated her shoulder discomfort to injection of pain medicine that she received about a month ago, patient continues to have shoulder pain x-rays performed show no acute fractures. Advised patient to follow-up with primary for possible additional with MRI if symptoms persist. Vital Signs Vital signs: Vital Signs Pulse Rate 94 06/15/23 15:00 Respiratory Rate 18 06/15/23 15:00 Blood Pressure 124/93 H 06/15/23 15:00 Pulse Oximetry 97 06/15/23 15:00 Oxygen Delivery Room Air 06/15/23 15:00 Temperature 36.4 C L 06/15/23 15:08 Pulse Rate 96 06/15/23 15:
[2023-06-15 16:00] VITALS: BP 124/93; PULSE 96; RESP 17; TEMP 36.4; O2SAT 99
== END 2023-06-15 16:00 | disposition home or self-care (01) ==
PROVIDERS: Emergency Provider Emergency Medicine; PCP Family Medicine
DX: S46.011A Strain of muscle(s) and tendon(s) of the rotator cuff of right shoulder, initial encounter (principal); X50.0XXA Overexertion from strenuous movement or load, initial encounter; F17.210 Nicotine dependence, cigarettes, uncomplicated; F12.90 Cannabis use, unspecified, uncomplicated
CPT/HCPCS: 73030; 99283

== ENCOUNTER 2023-08-01 15:42 | Emergency (ER) | payer OTHER, SELFPAY ==
[2023-08-01 15:42] VITALS: BP 135/94; PULSE 96; RESP 17; TEMP 36.3; O2SAT 99
--- NOTE | 2023-08-01 16:01 | ED.EAR ---
HPI - Ear Problem General Chief complaint: Ear Stated complaint: right ear pain Time Seen by Provider: 08/01/23 15:45 Source: patient and RN notes reviewed Mode of arrival: ambulatory Limitations: no limitations History of Present Illness HPI Narrative: patient states she began becoming ill 4 days ago. She was having some cough myalgias and some fullness in her ears. She would see her primary care physician who thought there was fluid behind her ears but no evidence of ear infection thought she had a viral infection that would just have to run its course. She said the pain in her left earache, much worse today is dramatically increased. Complaint: ear pain Location: left ear Duration: constant Severity: moderate Relieving factors: nothing Exacerbating factors: nothing Context: Reports recent illness Discharge from ear: Reports no Treatment prior to arrival: none Related Data Home Medications Medication Instructions Recorded Confirmed cetirizine 10 mg capsule (Zyrtec) 10 mg PO DAILY 05/25/21 08/01/23 bupropion HCl 300 mg 24 hr tablet, 300 mg PO DAILY 05/13/23 08/01/23 extended release fluoxetine 40 mg capsule 40 mg PO DAILY 05/13/23 08/01/23 gabapentin 300 mg capsule 300 mg PO DAILY 05/13/23 08/01/23 Allergies Allergy/AdvReac Type Severity Reaction Status Date / Time acetaminophen [From Vicodin] AdvReac Hives Verified 08/01/23 16:03 hydrocodone [From Vicodin] AdvReac Hives Verified 08/01/23 16:03 Review of Systems Review of Systems: All systems reviewed & are unremarkable except as noted in HPI and below PMFSH Past Medical History Medical History Depression affecting IUP (intrauterine ), incidental Morbid obesity with BMI of 40.0-44.9, adult Family History Family History Sibling Anxiety Depression Mother Anxiety Depression Diabetes mellitus Grandparent Heart disease Diabetes mellitus Social History Social History Smoking packs per day: 1 Smoking cigarettes per day: 20.0 Years smoked: 25 Smoking pack-years: 25.00 Smoking status: Current every day smoker Tobacco type: cigarettes Second hand tobacco smoke exposure: Yes Alcohol intake: never Substance use: current Substance use type: marijuana Other substance usage details: SMOKE Last use: 07/11/21 Living arrangements: with family Gender identity (if verbalized by the patient): Female Sexual Orientation (if Verbalized by the Patient): Straight or Heterosexual Spiritual care concerns: No Exam Const: General: healthy appearing, no acute distress and alert Nutritional Appearance: well nourished and obese Orientation/consciousness: patient oriented x3 Limitations: no limitations HENMT: Ears: external ears normal and TM abnormal bulging on the left, dull on the left, erythematous on the left and with loss of landmarks on the left Face/Nose/Sinus: Normal external nose present Face and sinus: normal facial exam Mouth: Yes moist mucous membranes Eyes: Conjunctivae: conjunctivae normal Pupils: Equal, round and reactive pupils present EOM: EOMs intact bilaterally Neck: Neck: normal visual inspection Resp: Effort & Inspection: normal respiratory effort Auscultation: clear to auscultation bilaterally Cardio: Rate: regular rate Rhythm: regular rhythm GI: GI Palp: Yes Soft to palpation and No Tenderness to palpation present (GI) Auscultation: normal bowel sounds Back/Spine/Pelvis: Cervical Spine: cervical ROM normal Thoracic/Lumbar Spine: thoraco-lumbar ROM normal Skin: General skin exam: normal color Rashes: no rashes Neuro: General: patient oriented x3, moves all extremities, no focal motor deficits and CN's II-XI intact bilaterally Speech: normal speech Gait exam (Neuro): Normal gait present Course Vital Signs Vi
[2023-08-01 16:17] VITALS: BP 135/94; PULSE 96; RESP 17; TEMP 36.3; O2SAT 99
== END 2023-08-01 16:17 | disposition home or self-care (01) ==
PROVIDERS: Emergency Provider Emergency Medicine; PCP Family Medicine
DX: H66.002 Acute suppurative otitis media without spontaneous rupture of ear drum, left ear (principal); F17.210 Nicotine dependence, cigarettes, uncomplicated; Z79.899 Other long term (current) drug therapy
CPT/HCPCS: 99283

== ENCOUNTER 2024-10-24 16:55 | Emergency (ER) | payer MEDICAID, SELFPAY ==
[2024-10-24 16:55] VITALS: BP 124/68; PULSE 86; RESP 18; TEMP 36.5; O2SAT 96
--- OUTSIDE RECORDS SUMMARY | 2024-10-24 16:58 | XMS_ITS | Patient Health Summary ---
Author Organization [facility] Address [address] [place] [address] Care Team Providers Care Applied Psychology Professor Name Role Phone Unavailable Primary Care Provider Unavailabl e Note from [facility],non-owned Affiliates and Associated Physician Practices is amultiple site organization consisting of ambulatory clinics and hospital sitesin [place], [place], [place] and [place]. This disclosure is being madepursuant to the Care Everywhere program and may not contain all information available regarding this patient. Last updated 18.[facility] Allergies No known active allergies Medications * Be aware that medications may not be up to date on this document. Alwaysverify current medications with the patient. * Vit-Fe Fumarate-FA ( VITAMIN) 28-0.8 MG tablet Take 1 tablet by mouth once daily * cetirizine (ZYRTEC) 10 MG chew tablet Take 10 mg by mouth once daily * sertraline (ZOLOFT) 100 MG tablet Take 200 mg by mouth once daily * aspirin (ASPIRIN) 81 MG chew tablet(Started 12/30/2020) Take 2 (two) tablets by mouth once daily Reasons: Preeclampsia prevention 11 refills by 12/30/2021 * magnesium gluconate 500 (27 Mg) MG tablet Take 500 mg by mouth once daily Patient taking OTC for restless leg. * Potassium 99 MG tablet Take 99 mg by mouth once daily Pt taking OTC for restless leg. * diphenhydrAMINE (BENADRYL) 25 MG capsule Take 25 mg by mouth nightly as needed for Itching Reasons: for sleep * hydrOXYzine hcl (ATARAX) 25 MG tablet Take 50 mg by mouth once Reasons: Feeling Anxious, for sleep and anxiety * insulin detemir (LEVEMIR) pen(Started 04/28/2021) Inject 12 (twelve) Units to 30 (thirty) Units subcutaneously 2 times daily Start with 12 units in morning, 16 in evening. Space doses by 12 hrs. Increase as directed 2 refills by 04/28/2022 * Insulin Pen Needle 32G X 4 MM MISC(Started 04/28/2021) Use 1 Each 2 times daily 3 refills by 04/28/2022 * Glucagon, rDNA, (GLUCAGON EMERGENCY) 1 MG KIT(Started 04/28/2021) Inject 1 (one) mg subcutaneously as needed 1 refill by 04/28/2022 Active Problems Problem Noted Date Diagnosed Date GDM (gestational diabetes mellitus) 04/02/2021 Maternal morbid obesity, antepartum 12/30/2020 Tobacco smoking affecting , antepartum 12/30/2020 ADEM (acute disseminated enc ephalomyelitis) (postinfectious) 12/28/2020 Uncontrolled restless legs syndrome 12/28/2020 AMA (advanced maternal age) multigravida 35+, first trimester 12/28/2020 Anxiety and depression 09/11/2010 Polycystic ovarian disease Resolved Problems Problem Noted Date Diagnosed Date Resolved Date Supervision of normal first 12/28/2020 12/28/2020 Social History Tobacco Use Types Packs/Day Years Used Date Smoking Tobacco: Every Day Cigarettes 0.3 25 Smokeless Tobacco: Never Comments:Cut down from a pac k a day Alcohol Use Standard Drinks/Week Comments Not Currently 0 (1 standard drink = 0.6 oz pur e alcohol) Sex and Gender Information Value Date Recorded Sex Assigned at Not on file Gender Identity Not on file Sexual Orientation Not on file Last Filed Vital Signs Vital Sign Reading Time Taken Comments Blood Pressure 115/82 05/12/2021 2:40 PM CDT Pulse 87 05/12/2021 2:40 PM CDT Temperature - - Respiratory Rate - - Oxygen Saturation - - Inhaled Oxygen Concentration - - Weight 122.8 kg (270 lb 12.8 oz) 05/12/2021 2:40 PM CDT Height 170.2 cm (5' 7 ) 12/30/2020 1:47 PM CDT Body Mass Index 42.41 12/30/2020 1:47 PM CDT Procedures * SONOGRAM - COMPLETE(Performed 05/12/2021) Performed for Gestational diabetes mellitus (GDM), antepartum, gestational diabetes method of control unspecified (HCC), Tobacco smoking affecting , antepartum (HCC), ADEM (acute disseminated encephalomyelitis) (postinfectious) (HCC), Uncontrolled restless legs syndrome, AMA (advanced mater nal age) multigravida 35+, first trimester (HCC) * SONOGRAM - COMPLETE(Performed 04/14/2021) Performed for Maternal morbid obesity, antepartum (HCC), Gestational diabetes mellitus (GDM) in third trimester, gestational diabetes method of control unspecified (HCC) * SONOGRAM - COMPLETE(Performed 03/24/2021) Performed for Evaluate anatomy not seen on prior sonogram, Tobacco smoking affecting , antepartum (HCC), Maternal morbid obesity, antepartum (HCC), AMA (advanced maternal age) multigravida 35+, first trimester (HCC) * SONOGRAM - COMPLETE(Performed 02/24/2021) Performed for Maternal morbid obesity, antepartum (HCC), AMA (advanced maternal age) multigravida 35+, first trimester (HCC) * SONOGRAM - COMPLETE(Performed 01/27/2021) Performed for ADEM (acute disseminated encephalomyelitis) (postinfectious) (HCC), Uncontrolled restless legs syndrome, AMA (advanced maternal age) multigravida 35+, first trimester (HCC) * SONOGRAM - COMPLETE(Performed 12/30/2020) Performed for AMA (advanced maternal age) multigravida 35+, first trimester (HCC), Uncontrolled restless legs syndrome, ADEM (acute disseminated encephalomyelitis) (postinfectious) (HCC) * DERMATOPATHOLOGY(Performed 06/23/2014) Results * SONOGRAM - COMPLETE (05/12/2021 1:53 PM CDT) Only the most recent of6 resultswithin the time period is included. Anatomical Region Laterality Modality Other 05/12/2021 1:53 PM CDT Narrative 05/12/2021 3:34 PM CDT [facility] PHONE: FAX: Pat. Name: CHAITANYA IBARRA. No: [id number] Study Date: 05/12/2021 1:53pm , Age: 07 1980, 41 Height: 67 in Weight: 260 lb LMP: Unknown GA by Base: 35w3d JG: 06/13/2021 GA by US: 33w4d JG: 06/26/2021 GA Selected: 35w3d ([facility]) JG: 06/13/2021 Referring MD: Justyn Ibanez MD Crisis Therapist: Marisol Arteaga, RDMS, RDCS CPT4: 26279,[id number] BMI: 40.72 Hist/Ind: H/O acute disseminated encephelomyelitis AMA Obesity III GDM MEASUREMENTS & AGE GROWTH EVALUATION Measurement GA Range Srce %for GA Ratios ----- ---- ------- BPD 8.7 cm 35w1d (91j3n-82k1a) Hadl BPD 46% FL/BPD 0.72 (0.71 - 0.87) HC 31.7 cm 35w5d (50j2c-98h7y) Hadl HC 21% FL/AC 0.22 (0.20 - 0.24) AC 29.3 cm 33w2d (49k1g-03i9y) Hadl AC 7% HC/AC 1.08 (0.93 - 1.12) FL 6.3 cm 32w4d (67x8c-49m3u) Hadl FL 1% CI 0.79 (0.70 - 0.86) HL 5.7 cm 33w0d (28d8g-41g0v) Oneil HL 8% RRad 4.7 cm (04e1r-67b3j) Malathi RRad36% RUln 5.4 cm 34w0d (31x9o-61l3f) Oneil RUln27% RTib 5.5 cm 32w2d (21k2m-58e9y) Oneil RTib<05 RFib 5.4 cm (96o9u-54d6f) Malathi RFib27% GA for sonogram 33w4d (97c2t-01h9r) Weight Estimate: based on (BPD,HC,AC,FL) Hadlock Weight: 2209 gm (1886-2531gm) Had : 4lbs, 13oz Normal: 2695 gm (2021-3368gm) Had Wt% 8% for 35w3d Heart Rate: 146 bpm Amniotic Fluid Index: 14.0cm (07.8-24.9) Q1: 4.0cm Q2: 3.7cm Q3: 4.4cm Q4: 1.9cm Biophysical Profile: 04/18 Breathin Tone: 2 Movement: 2 AFV: 2 EVAL, PLACENTA Presentation: cephalic Placenta: posterior Heart Rate: 146 bpm Amniotic Fluid Volume: normal DOPPLER Umbilical - Mid Cord S/D 2.38(1.66 - 3.55) PI 0.85 (0.59 - 1.17) Middle Cerebral Artery PSV 70.0cm/s PI 1.76 (1.43 - 2.59) Med PSV 52.2cm/s MoM 1.34(<1.5) CLINICAL SUMMARY Study Number: 6 A single fetus is seen in cephalic presentation. The measurements today are consistent with less than expected size for the JG provided. The JG selected is based on a prior ultrasound. The amniotic fluid volume is within normal limits. IMPRESSION: Single, live intrauterine at 35w3d SGA size with adequate interval growth Amniotic fluid volume: Normal Reassuring 8 point biophysical profile Umbilical artery Dopplers and MCA Dopplers within normal limits RECOMMEND: Continue twice weekly testing for A2GDM Repeat growth in 3 weeks; Given lack of evidence of pathologic growth restriction (EFW & AC >3%ile with normal Dopplers and AFV), no additional surveillance such as Doppler studies and routine maternal movement monitoring is indicated in the interim Thank you for allowing us the opportunity to care for your patient. Timothy Martinez MD <Electronic Signature> 05/12/2021 03:34pm R Francisco Ibanez MD [facility] ORDERABLES * PATHOLOGY TISSUE FOR DERMATOLOGY (06/23/2014 12:00 AM CDT) Result CASE: PATIENT: SONNY IBARRA PATHOLOGIC DIAGNOSIS: A. 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 Check margins. B: Nevus vs melanoma. Check margins. GROSS DESCRIPTION: A: Received is one formalin filled container labeled with the patient's name and designated right neck. The specimen consists of a shave biopsy measuring 15x7x4 mm. The margin is inked green. The specimen is bisected and submitted in 1 cassette. Jar 0. B: Received is one formalin filled container labeled with the patient's name and designated low back. The specimen consists of a non oriented ellipse of skin measuring 53e26t8ph. The epidermal surface is unremarkable. The margin is inked green. The 12 o'clock and 6 o'clock tips are submitted in cassette 1. The remainder of the ellipse is serially sectioned and submitted in cassette 2. Jar 0. MICROSCOPIC DESCRIPTION: SPECIMEN A: There are nests of melanocytes at the dermal-epiderma l junction and within the dermis. Some melanocytes are splayed between collagen bundles and are localized around adnexal structures. Lesion is present at the base of the specimen. SPECIMEN B: There are nests of melanocytes within the dermis. Some of these melanocytes are concentrated around blood vessels and adnexal structures. Lesion is present at both tips, one lateral margin and at the base of the specimen. Electronically signed out by Mita Toney M.D. 06/27/2014 1:01:22PM [facility] Comment: Performed at: Dermatopathology Laboratory [facility] Department of Dermatology [address] [place] [address] 5th [place] [address] Phone number: [phone] FAX: [phone] 06/23/2014 06/26/2014 Francisco Dhaliwal MD LAB - PATHOLOGY/CYTO LOGY ORDERABLES [facility] [address] [place] [address]. [facility] [place] [address], [facility] [phone]
--- OUTSIDE RECORDS SUMMARY | 2024-10-24 16:58 | XMS_ITS | Referral Summary ---
Author Organization [facility] [id number] [place] [id number] Care Team Providers Care Ore Charger Name Role Phone Izaiah Corrales Primary Care Provider [phone] Allergies Active Allergy Reactions Criticality Noted Date Comments Hydrocodone-Acetaminophen Itching Low 05/26/2023 Medications albuterol HFA (PROVENTIL HFA,VENTOLIN HFA,PROAIR HFA) 90 mcg/actuation inhaler Inhale 2 puffs every 4 (four) hours as needed 0 Active buPROPion XL (WELLBUTRIN XL) 300 mg 24 hr tablet Take 1 tablet (300 mg total) by mouth nightly Active cetirizine (ZyrTEC) 10 mg tablet Take 1 tablet (10 mg total) by mouth nightly as needed 0 Active FLUoxetine (PROzac) 40 mg capsule Take 1 capsule (40 mg total) by mouth nightly 3 Active gabapentin (NEURONTIN) 300 mg capsule Take 1 capsule (300 mg total) by mouth nightly 3 Active silver sulfadiazine (SILVADENE, SSD) 1 % creamIndications :Minor Bacterial Skin Infections Apply topically daily 50 g 3 Active naloxone (NARCAN) 4 mg/actuation spray,non-aeroso l CALL 911. ADMINISTER A SINGLE SPRAY INTRANASALLY INTO ONE NOSTRIL UPON SIGNS OF OPIOID OVERDOSE. MAY REPEAT AFTER 3 MINUTES IF NO RESPONSE. 3 Active oxyCODONE-acetam inophen (PERCOCET) 5-325 mg per tabletIndication s:Pain Take 1 tablet by mouth every 6 (six) hours as needed for pain 28 tablet 3 Active cholecalciferol (VITAMIN D-3) 50,000 unit capsuleIndicatio ns:Vitamin D deficiency Take 1 capsule (50,000 Units total) by mouth once a week Weekly x 2 months. Will need labs rechecked after that. Thanks. 4 capsule 1 3 Active Active Problems Problem Noted Date Diagnosed Date Closed displaced fracture of fifth metatarsal bone of right foot 05/24/2023 GDM (gestational diabetes mellitus) 04/02/2021 Overview (05/24/2023): 3 hr GCT: 97, 216, 175, 150 Last Assessment & Plan: GDMA2 I counseled Jm Mcneill regarding the adverse outcomes associated with inadequately controlled diabetes in . These complications include overgrowth with the associated risk of labor and shoulder dystocia, delivery, preeclampsia, hypoglycemia, stillbirth, and her child's risk of metabolic disease in later life secondary to programming of adult disease. Adequate treatment of the disease will minimize these risks. We discussed the dramatic increase in insulin resistance that occurs in the second half of and I outlined a plan for ongoing management. We reviewed the target glucose ranges to minimize excessive growth and optimize outcomes. These are: Fasting 60- 90 mg/dl; preprandial 60-105 mg/dl; and 1-hour postprandial < 130 mg/dl. Her dose was and will be: AM PM HS A) Antepartum testing. Recommend daily kick counts Twice weekly NST from 34 weeks until delivery. Serial Ultrasound assessment of growth every 3-4 weeks is recommended, with a reassessment between 37-38 weeks for mode of delivery planning. B.) Timing of Delivery. If spontaneous delivery has not occurred by 39 weeks gestation, delivery may be planned between 39-40 weeks. If dating is uncertain, an amniocentesis for Lung Maturity may be performed prior to scheduled delivery. If complications, such as preeclampsia, macrosomia or poor glucose control develop, then delivery plans may need to be revised. C) Route of delivery. Vaginal delivery may be anticipated unless the fetus is excessively large or there is an abnormal presentation. Diabetes is associated with about a six- fold risk for shoulder dystocia. Operative vaginal deliveries should be approached with caution. We also discussed the limitations of ultrasound for estimating weight at term, with estimated weights deviating by up to 1 lb in either direction from birthweights. I advised Jm that the [employer] recommends delivery for fetuses with estimated weight of 4500 grams or greater in diabetic mothers. D) Glucose control in labor. During labor, capillary glucose values should be checked every 1-2 hours (depending on their stability). Maintenance fluids with 5% dextrose are infused to prevent starvation ketosis. If the glucose values exceed 110 mg/dl, an insulin infusion is recommended. E) Long- term diabetes surveillance. The risk of Jm Mcneill developing diabetes outside of over the next five years may be as high as 50%. I recommend that she have a fasting plasma glucose or 2hr GTT at 4 weeks and discussion of the results at her 6 week visit. If her testing is normal, annual glucose screening by her primary care physician is advised. MFM recommendations: - Perform 4 times daily blood glucose measurements - Close contact with our dress fitter to optimize glycemic control on at least once weekly basis - Met with CDE today for extensive counseling - Insulin: - serial ultrasounds for growth every 4 weeks--repeat again in 3 weeks given growth today. - Twice weekly surveillance starting at 34 weeks, given co-morbidity of obesity and growth patterns will recommend twice weekly NST and weekly BPP. - Close surveillance for gestational hypertension and preeclampsia - Typical delivery recommended at 39 weeks in uncomplicated diabetic ; further recommendations on timing of delivery will depend on glycemic control and surveillance. Maternal morbid obesity, antepartum 12/30/2020 Overview (05/24/2023): Last Assessment & Plan: TW lbs TSH: 2.19. early GCT: 112. Failed second GCT and GTT. Normotensive and compliant with ASA Follow up anatomy pending today. Preliminary EFW: 10%, AC: 14%. MFM recommendations: 1. Serial growth every 4 weeks after 20 weeks. Anticipate repeating growth in 3 weeks given some reduction in growth from previous assessment; see formal ultrasound report today for guidance. 2. Twice weekly testing to begin at 34 weeks, driven by GDM. 3. Recommend limiting weight gain to 0 to 15 lb 4. Counseled on preeclampsia warnings again today. 5. Recommend and weight reduction Tobacco smoking affecting , antepartum 12/30/2020 Overview (05/24/2023): Last Assessment & Plan: Continues 1-2 per day. ADEM (acute disseminated enc ephalomyelitis) (postinfectious) 12/28/2020 Overview (05/24/2023): 2012 Infection. 03/26/21 MRI of brain done at [facility]...results pending. Last Assessment & Plan: See above plan. As outlined by Dr. Guerin: This type of inflammation is frequently secondary to infection and more common in children. There can be damage to white matter in the brain and the central nervous system with secondary palsy or paralysis. This patient was treated with steroids and her only sequelae has been restless legs. It is uncommon for there to be a relapse after treatment. Rarely the patient ultimately develops multiple sclerosis. Jm has been discharged from the care of a neurologist, but now we recommend re-connecting following MRI completion. AMA (advanced maternal age) multigravida 35+, first trimester 12/28/2020 Overview (05/24/2023): Dating 11/12/20 @ 9w4d = JG 06/13/21 1 hr GCT: 112 (01/20/21); Repeat 1 hr GCT: 139, 3hr GTT to be done 04/01/21. TSH w/reflex: 2.19 (01/20/21) Last Assessment & Plan: Advanced maternal age The obstetric risks of advanced maternal age were discussed, including but not limited to the increased risk of Down's syndrome and other genetic disorders, congenital anomalies, SAB, gestational hypertension, preeclampsia, gestational diabetes, labor, morbidity, placental complications such as abruption and previa, delivery via and dysfunctional labor, and other maternal morbidity/mortality. Jm reports that she has already had aneuploidy screening performed. Maternal Medicine recommendations: 1. please provide a copy of the aneuploidy screening if already performed 2. recommend early glucose challenge test if not previously performed 1. if a glucose challenge test has been performed please provide the results to our office for review 3. aspirin for preeclampsia risk reduction--prescription provided Uncontrolled restless legs syndrome 12/28/2020 Overview (05/24/2023): Per [facility] pt was on Gabapentin for RLS r/t ADEM. Stopped in . Last Assessment & Plan: Problematic despite supplementation of magnesium and potassium, therefore stopped. S/p Appointment 03/[address] Corrales who ordered MRI without contrast for this Monday, 03/26. MRI was completed, needs to follow up to review results. Previously taking gabapentin from a friend, does not have an active prescription; this was beneficial to her. Did not try hydroxyzine. MFM recommendations: 1. Continue to recommended appointment with neurology to review MRI results. 2. Records requested from PCP today. 3. Notify Global Safety Officer of any falls. Wear supportive shoes. Allergic rhinitis 04/17/2018 Polycystic ovary syndrome 04/17/2018 Overview (05/24/2023): Told that she did not ovulate regularly. Reactive airway disease without asthma 8 Demyelinating disease of central nervous system 09/19/2012 Anxiety and depression 09/11/2010 Overview (05/24/2023): sertraline for anxiety and depression- No counseling Last Assessment & Plan: Continued Intermittent anxiety with sertraline. Denies mood exacerbation. MFM recommendations: 1. I again encouraged Jm to establish with counselor. Reviewed coping strategies that could be beneficial. 2. Notify record changer of the use of sertraline if continued into the 3rd trimester 1. would benefit from increased supervision in the 1st 48 hr of life Social History Tobacco Use Types Packs/Day Years Used Date Smoking Tobacco: Former Cigarettes Tobacco Cessation:Counseling Given: No Personal Safety Answer Date Recorded Have you ever been in or are you currently in a harmful physical or emotional relationship or is someone making you feel afraid or unsafe? 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 Gender Identity Not on file Sexual Orientation Not on file Last Filed Vital Signs Vital Sign Reading Time Taken Comments Blood Pressure 141/80 05/26/2023 3:50 PM CDT Pulse 89 05/26/2023 3:55 PM CDT Temperature 36.8 C (98.2 F) 05/26/2023 3:25 PM CDT Respiratory Rate 23 05/26/2023 3:55 PM CDT Oxygen Saturation 100% 05/26/2023 3:55 PM CDT Inhaled Oxygen Concentration - - Weight 115.7 kg (255 lb) 05/26/2023 11:47 AM CDT Height 170.2 cm (5' 7 ) 09/18/2023 10:16 AM WOOD CRAFTER Body Mass Index 39.94 05/26/2023 11:47 AM CDT Plan of Treatment Not on file Medical Devices Implanted Type Area Audio Visual Project Manager Device Identifier Shelf Expiration Date Model / Serial / Lot [employer] Ortholoc 2.4mm 10mm Lock Forefoot Screw Bone Titanium Nitride [id number] - [id number] Implanted:Qty : 1 on 05/26/2023 by Edwar Kate Jr., MD at [facility] Right: Metatarsal [employer] [id number] / / Avogy Ortholoc 3di W5.5 Mm X H1.3 Mm 6 Hole Low Profile Straight Plate [id number] - [id number] Implanted:Qty : 1 on 05/26/2023 by Edwar Kate Jr., MD at [facility] Right: Metatarsal [employer] [id number] / / [employer] Ortholoc 2.4mm 16mm Lock Forefoot Screw Bone Titanium Nitride [id number] - [id number] Implanted:Qty : 1 on 05/26/2023 by Edwar Kate Jr., MD at [facility] Right: Metatarsal [employer] [id number] / / [employer] Ortholoc 2.4mm 14mm Nonlock Forefoot Screw Bone Titanium Nitride [id number] - [id number] Implanted:Qty : 1 on 05/26/2023 by Edwar Kate Jr., MD at [facility] Right: Metatarsal [employer] [id number] / / [employer] Ortholoc 2.4mm 16mm Nonlock Forefoot Screw Bone Titanium Nitride [id number] - [id number] Implanted:Qty : 2 on 05/26/2023 by Edwar Kate Jr., MD at [facility] Right: Metatarsal [employer] [id number] / / Procedures Procedure Name Priority Date/Time Associated Diagnosis Comments HEMOGLOBIN A1C Routine 06/16/2014 10:15 AM CDT from Last 3 Months or Most Recently Relevant to Health Maintenance Results * Hemoglobin A1c (06/16/2014 10:15 AM CDT) Hemoglobin A1c % 5.7 4.8 - 5.9 % 06/16/2014 12:39 PM CDT [facility] HISTORICAL RESULTS Comment: As of 2010 Method: REGGIE Srinivasan 6000 using turbidometric inhibition immunoassay procedure. Results obtained are comparable to results obtained using previous methodology (HPLC). [place] [employer] recommends that the goal of therapy should be an A1C hemoglobin of <7%. Reevaluate the treatment regimen in patients with an A1C >8%. 06/16/2014 10:1 5 AM CDT 06/16/2014 10:41 AM CDT Francisco Dhaliwal MD LAB BLOOD ORDERABLES Final Result [facility] HISTORICAL RESULTS from Last 3 Months or Most Recently Relevant to Health Maintenance [place] [facility] Care Teams Ore Charger Relationship Specialty Start Date End Date Izaiah Corrales PA [address] [place] [address] PCP - General 03/26/21
--- OUTSIDE RECORDS SUMMARY | 2024-10-24 16:58 | XMS_ITS | Clinical Summary ---
Author Organization [facility] Address [address] [place] [address] Care Team Providers Care Pest Technician Name Role Phone Unavailable Primary Care Provider Unavailabl e Source Comments [facility],non-owned Affiliates and Associated Physician Practices is amultiple site organization consisting of ambulatory clinics and hospital sitesin [place], [place], [place] and [place]. This disclosure is being madepursuant to the Care Everywhere program and may not contain all information available regarding this patient. Last updated 18.[employer] (ABAM) [facility] Allergies No known active allergies Medications * Be aware that medications may not be up to date on this document. Alwaysverify current medications with the patient. Medication Sig Dispensed Refills Start Date End Date Status Vit-Fe Fumarate-FA ( VITAMIN) 28-0.8 MG tablet Take 1 tablet by mouth once daily Active cetirizine (ZYRTEC) 10 MG chew tablet Take 10 mg by mouth once daily Active sertraline (ZOLOFT) 100 MG tablet Take 200 mg by mouth once daily Active aspirin (ASPIRIN) 81 MG chew tabletIndications :Preeclampsia prevention Take 2 (two) tablets by mouth once daily Reasons: Preeclampsia prevention 100 tablet 11 12/30/2020 Active magnesium gluconate 500 (27 Mg) MG tablet Take 500 mg by mouth once daily Patient taking OTC for restless leg. Active Potassium 99 MG tablet Take 99 mg by mouth once daily Pt taking OTC for restless leg. Active diphenhydrAMINE (BENADRYL) 25 MG capsuleIndication s:for sleep Take 25 mg by mouth nightly as needed for Itching Reasons: for sleep Active hydrOXYzine hcl (ATARAX) 25 MG tabletIndications :Anxiety,for sleep and anxiety Take 50 mg by mouth once Reasons: Feeling Anxious, for sleep and anxiety Active insulin detemir (LEVEMIR) pen Inject 12 (twelve) Units to 30 (thirty) Units subcutaneously 2 times daily Start with 12 units in morning, 16 in evening. Space doses by 12 hrs. Increase as directed 15 mL 2 04/28/2021 Active Insulin Pen Needle 32G X 4 MM MISC Use 1 Each 2 times daily 100 Each 3 04/28/2021 Active Glucagon, rDNA, (GLUCAGON EMERGENCY) 1 MG KIT Inject 1 (one) mg subcutaneously as needed 1 Each 1 04/28/2021 Active Active Problems Problem Noted Date Diagnosed Date GDM (gestational diabetes mellitus) 04/02/2021 Overview (04/02/2021): 3 hr GCT: 97, 216, 175, 150 Assessment & Plan (04/14/2021 12:23 PM CDT): GDMA2 I counseled Jm Mcneill regarding the [...] growth and optimize outcomes. These are: Fasting 60-90 mg/dl; preprandial 60-105 mg/dl; and 1-hour postprandial [...] presentation. Diabetes is associated with about a six-fold risk for shoulder dystocia. Operative vaginal deliveries should be approached with caution. We also discussed the limitations of ultrasound for estimating weight at term, with estimated weights deviating by up to 1 lb in either direction from birthweights. I advised Jm that the [place] [employer] recommends delivery [...] mg/dl, an insulin infusion is recommended. E) Long-term diabetes surveillance. The risk of Jm Mcneill [...] glucose measurements - Close contact with our nursing educator to optimize glycemic control on at least [...] and surveillance. Maternal morbid obesity, antepartum 12/30/2020 Assessment & Plan (04/14/2021 12:26 PM CDT): TW lbs TSH: 2.19. early GCT: 112. [...] again today. 5. Recommend and weight reduction Assessment & Plan (03/24/2021 12:19 PM CDT): TW lbs TSH: 2.19. early GCT: 112. Repeat is pending today. Normotensive and compliant with ASA Follow up anatomy pending today. Preliminary EFW: 22%, AC: 13%. Maternal Medicine recommendations: 1. Serial growth every 4 weeks after 20 weeks. Anticipate repeating growth in 3 weeks given some reduction in growth from previous assessment; see forma ultrasound report today for guidance. 2. Weekly BPP starting at 36 weeks 3. Recommend limiting weight gain to 0 to 15 lb 4. Counseled on preeclampsia warnings and handout provided. 5. Recommend and weight reduction 6. Repeated GCT, please send us results. Assessment & Plan (02/24/2021 3:51 PM CDT): TW lbs TSH: 2.19. early GCT: 112. Normotensive and compliant with ASA Follow up anatomy and growth are pending today Maternal Medicine recommendations: 1. Serial growth every 4 weeks after 20 weeks 2. Weekly BPP starting at 36 weeks 3. Recommend limiting weight gain to 0 to 15 lb 4. Recommend and weight reduction 5. Repeat GCT at 26-28 weeks, please send us results Assessment & Plan (01/27/2021 2:26 PM CDT): TWlbs TSH: 2.19. early GCT: 112. Normotensive and compliant with ASA Anatomy and growth are pending today Maternal Medicine recommendations: 1. Serial growth every 4 weeks after 20 weeks 2. Weekly BPP starting at 36 weeks 3. Recommend limiting weight gain to 0 to 15 lb 4. Recommend and weight reduction 5. Repeat GCT at 26-28 weeks Assessment & Plan (12/30/2020 6:10 PM CDT): Obese women have higher rates of spontaneous miscarriage. Morbid obesity is associated with a host of complications: increased risk for preeclampsia and gestational hypertension, delivery, macrosomia, gestational diabetes, deep venous thrombosis, delivery, stillbirth and certain defects, such as open neural tube defects. deliveries are associated with an increased risk of complications, such as anesthetic complications, wound complications and infections. During , limited weight gain is recommended. The [place] of Medicine recommends a total weight gain in between 11-20 lb for women who have obese body habitus as defined by a body mass index greater than or equal to 30. Maternal Medicine recommendations: 1. Tests requested: TSH, free T4 2. Serial growth every 4 weeks after 20 weeks 3. weekly BPP starting at 36 weeks 4. Recommend limiting weight gain to 0 to 15 lb 5. recommend 6. Recommend weight reduction Tobacco smoking affecting , antepartum 12/30/2020 Assessment & Plan (02/24/2021 3:57 PM CDT): Continues 1-2 per day. Assessment & Plan (01/27/2021 2:23 PM CDT): Has reduced to a few per day. I praised her efforts. Assessment & Plan (12/30/2020 6:10 PM CDT): I commended Jm Mcneill on her decreased smoking and encouraged complete cessation. Tobacco is associated with an increased risk of low weight, abruptio placenta, delivery and sudden syndrome. We also talked about its relationship to adult heart disease. She was counseled to cut down smoking and quit, if possible. I also recommended breast feeding of her for child and maternal benefit, including maternal heart protection for every year of . I also voiced that formula feeding while smoking cigarettes has increased risk to the child compared to offering breast milk with continued smoking. Therefore even if smoking cessation is not achieved still adds benefit to the mother and the child. Maternal Medicine recommendations: 1. complete smoking cessation 2. Recommend ADEM (acute disseminated enc ephalomyelitis) (postinfectious) 12/28/2020 Overview (03/30/2021): 2012 Infection. 03/26/21 MRI [facility] brain done at [facility]...results pending. Assessment & Plan (04/14/2021 12:26 PM CDT): See above plan. As outlined by Dr. [...] now we recommend re-connecting following MRI completion. Assessment & Plan (03/24/2021 12:14 PM CDT): See above plan. As outlined by Dr. [...] neurologist, but now we recommend re-connecting following MRI. Assessment & Plan (12/30/2020 6:07 PM CDT): This type of inflammation is frequently secondary [...] been discharged from the care of a neurologist. She was taking gabapentin earlier in the for her restless legs but has since stopped this medication. Neurontin (Gabapentin): U.S. FDA category C. animal studies have revealed evidence of toxicity involving delayed ossification of several bones of the skull, vertebra, forelimbs and hind limbs--no controlled data in human . Maternal Medicine recommendations: 1. detailed anatomy survey at 20 weeks Uncontrolled restless legs syndrome 12/28/2020 Overview (12/28/2020): Per [facility] pt was on Gabapentin for RLS r/t ADEM. Stopped in . Assessment & Plan (04/14/2021 12:24 PM CDT): Problematic despite supplementation of magnesium and potassium, therefore stopped. S/p Appointment 03/[address] Corrales who ordered MRI without contrast for this 03/26. MRI was completed, needs to follow up to review results. Previously taking gabapentin from a friend, does not have an active prescription; this was beneficial to her. Did not try hydroxyzine. MFM recommendations: 1. Continue to recommended appointment with neurology to review MRI results. 2. Records requested from PCP today. 3. Notify Set Up And Lay Out Inspector of any falls. Wear supportive shoes. Assessment & Plan (03/24/2021 12:10 PM CDT): Problematic despite supplementation of magnesium and potassium, therefore stopped. S/p Appointment 03/[address] Corrales who ordered MRI without contrast for this 03/26. Previously taking gabapentin from a friend, does not have an active prescription; this was beneficial to her. Did not try hydroxyzine. MFM recommendations: 1. Attend appointment with PCP and MRI as ordered by PCP. Continue to recommended appointment with neurology to review MRI results. 2. Records requested from PCP today. 3. DVT warnings reviewed again. 4. Notify Set Up And Lay Out Inspector of any falls. Wear supportive shoes. Assessment & Plan (02/24/2021 3:50 PM CDT): Problematic despite supplementation of magnesium 400mg daily and potassium as 99mg which is equal to 2.53 milliequivalents of elemental potassium. Appointment 03/[address] Lockhart who will refer patient back to her previous neurologist. Previously taking gabapentin from a friend, does not have an active prescription; this was beneficial to her. Did not try hydroxyzine. MFM recommendations: 1. Check BMP with daily potassium use, sent with order today. 2. I again encouraged her to trial hydroxyzine at night for aid in insomnia and anxiety she mentioned today. 3. Attend appointment with PCP for referral to neurology. Our business card was provided today in case patient attends neurology appointment and neurologist would like to reach out in real time or send recommendations to our MFM team for discussion. 4. DVT warnings reviewed in lieu of leg discomfort. Assessment & Plan (01/27/2021 2:23 PM CDT): Problematic despite supplementation of magnesium and potassium. Not every night but problematic when she works on her feet all day. Previously taking gabapentin from a friend, does not have an active prescription. Willing to try hydroxyzine to see if it aids in her sleep before re-starting gabapentin. MFM recommendations: 1. Check BMP with daily potassium use. 2. Start hydroxyzine at night for aid in insomnia, especially nights after she works. 3. Establish with primary care to see if a PRN dose of gabapentin would be indicated and helpful if restless legs worsen. Discussed risk/benefit discussion at that time reiterating what was discussed at her initial consultation with MFM. 4. Reviewed sleep hygiene with patient also and interventions to implement. Assessment & Plan (12/30/2020 6:12 PM CDT): Approved views of magnesium topical rubs or soaks for the treatment of restless legs AMA (advanced maternal age) multigravida 35+, first trimester 12/28/2020 Overview (03/30/2021): Dating 11/12/20 @ 9w4d = JG 06/13/21 1 hr GCT: 112 (01/20/21); Repeat 1 hr GCT: 139, 3hr GTT to be done 04/01/21. TSH w/reflex: 2.19 (01/20/21) Assessment & Plan (12/30/2020 6:14 PM CDT): Advanced maternal age The obstetric risks of [...] 3. aspirin for preeclampsia risk reduction--prescription provided Anxiety and depression 09/11/2010 Overview (12/30/2020): sertraline for anxiety and depression- No counseling Assessment & Plan (03/24/2021 12:15 PM CDT): Continued Intermittent anxiety with sertraline. Denies mood exacerbation. M recommendations: 1. I again encouraged Jm to establish with counselor. Reviewed coping strategies that could be beneficial. 2. Notify manager local of the use of sertraline if continued into the 3rd trimester 1. [place] would benefit from increased supervision in the 1st 48 hr of life Assessment & Plan (02/24/2021 3:57 PM CDT): Intermittent anxiety persists with sertraline. Endorses that heightened anxiety can lead to crying episodes for her. Has been taking sertraline for 9+years. Prescribed through PCP. Has not previously had benefit with counseling MFM recommendations: 1. Encouraged to discuss with PCP if anxiety and crying spells persist, may be time for change in medication therapy. 2. Encouraged coping strategies such as journaling, meditation, yoga. 3. Notify manager local of the use of sertraline if continued into the 3rd trimester 4. would benefit from increased supervision in the 1st 48 hr of life Assessment & Plan (01/27/2021 2:28 PM CDT): Intermittent anxiety with sertraline. Denies mood exacerbation. MFM recommendations: 1. Encouraged to establish with counselor. 2. Notify manager local of the use of sertraline if continued into the 3rd trimester 3. would benefit from increased supervision in the 1st 48 hr of life Assessment & Plan (12/30/2020 6:14 PM CDT): Mood appropriate on sertraline. Remains at risk for mood deterioration both antepartum and . Sertraline [Zoloft]: U.S. FDA category not assigned. Animal studies have failed to show evidence of teratogenicity; however, there has been evidence of delayed ossification. There may be potential for drug discontinuation syndrome in the . Some experts suggest that newborns be observed for the first 48 hours of life after , if there has been exposure late in the 3rd trimester. SSRIs, in general, may increase the risk of persistent pulmonary hypertension of the . This drug is considered one of the preferred antidepressants during breast- feeding. Maternal Medicine recommendations: 1. reassess maternal mood at and visits 2. recommend a mental health counselor 3. notify manager local of the use of sertraline if continued into the 3rd trimester 4. would benefit from increased supervision in the 1st 48 hr of life Polycystic ovarian disease Overview (12/30/2020): Told that she did not ovulate regularly. Resolved Problems Problem Noted Date Diagnosed Date Resolved Date Supervision of normal first 12/28/2020 12/28/2020 Overview (12/28/2020): Dating 11/12/20 @ 9w4d = JG 06/13/21 Family History Medical History Relation Name Comments Cancer - Renal Daughter Step daughter with Wilms tumor Thyroid Disease Mother Polycystic Ovary Syndrome Sister Relation Name Status Comments Daughter Father Alive Patient does NO T talk to DAD Mother Alive Sister Alive hysterectomy Social History Tobacco Use Types Packs/Day Years [...] Mass Index 42.41 12/30/2020 1:47 PM CDT Plan of Treatment Health Maintenance Due Date Last Done Comments LIPID TESTING 1981 MAMMOGRAM 1981 HIV SCREENING 1996 HEPATITIS C SCREENING 03/14/1999 DTAP/TDAP/TD VACCINES (1 - Tdap) 2000 HEPATITIS B VACCINE (1 of 3 - 19+ 3-dose series) 2000 PNEUMOCOCCAL VACCINE (1 of 2 - PCV) 2000 PAP SMEAR 12/23/2023 12/22/2020, 11/12/2020, 11/12/2020 COVID-19 VACCINE (1 - 2023-2 5 season) 2024 INFLUENZA VACCINE (#1) 2024 DEPRESSION SCREENING 09/11/2024 ZOSTER VACCINE (1 of 2) 2031 HIB VACCINE Aged Out No longer eligi ble based on patient's age to complete this topic HPV VACCINE Aged Out No longer eligi ble based on patient's age to complete this topic MENINGOCOCCAL (Group B) VACCINE Aged Out No longer eligible b ased on patient's age to complete this topic MENINGOCOCCAL VACCINE Aged Out No julia sg eligible based on patient's age to complete this topic
--- OUTSIDE RECORDS SUMMARY | 2024-10-24 16:58 | XMS_ITS | Clinical Summary ---
Author Organization [facility] [address] [place] [id number] Care Team Providers Care Emergency Registrar Name Role Phone Izaiah Corrales Primary Care Provider [phone] Allergies Active Allergy Reactions Criticality Noted Date [...] from birthweights. I advised Jm that the [place] [employer] recommends delivery [...] glucose measurements - Close contact with our certified diabetes educator to optimize glycemic control on at [...] Infection. 03/26/21 MRI of brain done at [facility]...results pending. Last Assessment & Plan: See above [...] Records requested from PCP today. 3. Notify Fire Protection Engineer of any falls. Wear supportive shoes. Allergic [...] strategies that could be beneficial. 2. Notify school community relations coordinator of the use of sertraline if continued into the 3rd trimester 1. would benefit from increased supervision in the 1st 48 hr of life Surgical History Surgery Date Site/Laterality Comments TUBAL LIGATION Medical History Medical History Date Comments Closed displaced fracture of fifth metatarsal gisel ne of right foot Depression Family History Medical History Relation Name Comments No Known Problems Father Diabetes Mother Thyroid disease Mother Relation Name Status Comments Father Mother Social History Tobacco Use Types Packs/Day Years [...] on file Legal Sex Female 9:18 AM STUDIO PRODUCER Gender Identity Not on file Sexual Orientation Not on file Obstetrics History Last Filed Vital Signs Vital Sign Reading [...] cm (5' 7 ) 09/18/2023 10:16 AM STUDIO PRODUCER Body Mass Index 39.94 05/26/2023 11:47 AM CDT Plan of Treatment Health Maintenance Due Date Last Done Comments Albumin Creatinine Ratio, Urine 1981 Breast Cancer Screening-Mammogram 1981 Cervical Cancer Screening 1981 Depression Screening 1981 Hepatitis C Screening 1981 eGFR 1981 Dilated Eye Exam 1981 Foot Exam 1981 Lipid Panel 1981 Pneumococcal vaccine <65 (1 of 2 - PCV) 1987 Varicella Vaccines (1 of 2 - 13+ 2-dose series) 1994 Hepatitis B Screening 1999 Regular Well Visit/Exam 18-64 1999 Hemoglobin A1C 12/15/2014 06/16/2014 DTaP/Tdap/Td Vaccine (2 - Td or Tdap) 09/11/2021 09/11/2011 Influenza Vaccine (#1) 2024 HPV Vaccines Aged Out No longer eligi ble based on patient's age to complete this topic Medical Devices Implanted Type Area Pipe Coverer Helper Device Identifier Shelf Expiration Date Model / Serial / Lot [employer] Ortholoc 2.4mm 10mm Lock Forefoot Screw Bone Titanium Nitride [id number] - [id number] Implanted:Qty : 1 on 05/26/2023 by Edwar Kate Jr., MD at [facility] Right: Metatarsal [employer] [id number] / / [employer] Ortholoc 3di W5.5 Mm X H1.3 Mm 6 Hole Low Profile Straight Plate [id number] - [id number] Implanted:Qty : 1 on 05/26/2023 by Edwar Kate Jr., MD at [facility] Right: Metatarsal [employer] [id number] / / [employer] Ortholoc 2.4mm 16mm Lock Forefoot Screw Bone Titanium Nitride [id number] - [id number] Implanted:Qty : 1 on 05/26/2023 by Edwar Kate Jr., MD at [facility] Right: Metatarsal [employer] [id number] / / [employer] Ortholoc 2.4mm 14mm Nonlock Forefoot Screw Bone Titanium Nitride [id number] - [id number] Implanted:Qty : 1 on 05/26/2023 by Edwar Kate Jr., MD at [facility] Right: Metatarsal [employer] [id number] / / [employer] Ortholoc 2.4mm 16mm Nonlock Forefoot Screw Bone Titanium Nitride [id number] - [id number] Implanted:Qty : 2 on 05/26/2023 by Edwar Kate Jr., MD at [facility] Right: Metatarsal [employer] [id number] / / Procedures Procedure Name Priority Date/Time Associated Diagnosis Comments HEMOGLOBIN A1C Routine 06/16/2014 10:15 AM CDT from Last 3 Months or Most Recently Relevant to Health Maintenance Results * Hemoglobin A1c (06/16/2014 10:15 AM CDT) Hemoglobin A1c % 5.7 4.8 - 5.9 % 06/16/2014 12:39 PM CDT [facility] HISTORICAL RESULTS Comment: As of 2010 Method: REGGIE Srinivasan 6000 using turbidometric inhibition immunoassay procedure. Results obtained are comparable to results obtained using previous methodology (HPLC). [place] [employer] recommends that the goal of therapy should be an A1C hemoglobin of <7%. Reevaluate the treatment regimen in patients with an A1C >8%. 06/16/2014 10:1 5 AM CDT 06/16/2014 10:41 AM CDT Francisco Dhaliwal MD LAB BLOOD ORDERABLES Final Result [facility] HISTORICAL RESULTS from Last 3 Months or Most Recently Relevant to Health Maintenance Insurance [facility] [facility] Care Teams Emergency Registrar Relationship Specialty Start Date End Date Izaiah Corrales PA [address] [place] [address] PCP - General 03/26/21
--- OUTSIDE RECORDS SUMMARY | 2024-10-24 16:58 | XMS_ITS | Encounter Summary ---
Author Organization [facility] Healthcare Address [address] [place] [address] Care Team Providers Care Grade Teacher Name Role Phone Izaiah Corrales Primary Care Provider [phone] Encounter Details Date Type Department Care Team (Late st Contact Info) Description 06/30/2023 10:18 AM CDT Hospital Encounter [facility] [id number] [place] [phone] Social History Tobacco Use Types Packs/Day Years Used Date Smoking Tobacco: Former Cigarettes Personal Safety Answer Date Recorded Have you ever been in or are you currently in a harmful physical or emotional relationship or is someone making you feel afraid or unsafe? Denies 05/26/2023 Comments No Sex and Gender Information Value Date Recorded Sex Assigned at Not on file Legal Sex Female 9:18 AM FAMILY CONSUMER SCIENTIST Gender Identity Not on file Sexual Orientation Not on file documented as of this encounter Plan of Treatment Not on file documented as of this encounter Procedures Procedure Name Priority Date/Time Associated Diagnosis Comments XR FOOT RIGHT 3 OR MORE VIEWS Schedule Routine, Read Routine (OP Routine) 06/30/2023 11:10 AM CDT Closed displaced fracture of fifth metatarsal bone of right foot with routine healing, subsequent encounter documented in this encounter Results * XR Foot Right 3 or More Views (06/30/2023 11:10 AM CDT) Anatomical Region Laterality Modality Lower Extremities, Foot Right Computed Radiography Narrative 06/30/2023 4:42 PM CDT My interpretation of her x-rays today: Three views of her right foot including AP, lateral, and oblique show that the instrumentation from her ORIF of the 5th metatarsal remains in good position. There has been no migration or failure of any of the components. Her fracture is well aligned. It appears this there is some early callus formation present. us Katlyn EDWARDS IMG XR PROCEDURES Final Resu lt documented in this encounter Visit Diagnoses Not on filedocumented in this encounter Care Teams Grade Teacher Relationship Specialty Start Date End Date Izaiah Corrales PA [address] [place] [address] PCP - General 03/26/21 documented as of this encounter
--- OUTSIDE RECORDS SUMMARY | 2024-10-24 16:58 | XMS_ITS | Clinical Summary ---
Author Organization [facility] Address [address] [place] [address] Care Team Providers Care Food Mobile Driver Name Role Phone Kerrie Raymond NP Primary Care Provi marco a Allergies No known active allergies Medications albuterol sulfate HFA (PROAIR HFA) 108 (90 Base) MCG/ACT inhalerIndicati ons:Reactive airway disease that is not asthma Inhale 2 puffs into the lungs every 4 (four) hours as needed for Wheezing. 8 g 09/18/2019 Active buPROPion XL 150 MG 24 hr tabletIndicatio ns:Depression Take 1 tablet (150 mg total) by mouth daily. 90 tablet 09/18/2019 Active cetirizine (ZYRTEC ALLERGY) 10 MG tabletIndicatio ns:Allergic rhinitis Take 1 tablet (10 mg total) by mouth daily as needed for Allergies. 30 tablet 09/18/2019 Active sertraline 100 MG tabletIndicatio ns:Depression Take 2 tablets once a day 180 tablet 07/03/2020 Active Active Problems Problem Noted Date Diagnosed Date Allergic rhinitis 04/17/2018 Anxiety 04/17/2018 Depression 04/17/2018 Morbid obesity ([facility]) 04/17/2018 PCOS (polycystic ovarian syndrome) 04/17/2018 Reactive airway disease that is not asthma 04/17 Resolved Problems Problem Noted Date Diagnosed Date Resolved Date Encounter for preventive health examination 04/17/2018 05/22/2020 Immunizations Name Administration Dates Next Due Tdap (Generic) 09/11/2011 Family History Medical History Relation Comments Glaucoma Maternal Aunt CARDIAC DISORDER Maternal Grandfather Hypertension Maternal Grandfather Glaucoma Maternal Grandmother Anxiety Mother Depression Mother Breast Cancer Paternal Grandmother Anxiety Sister Depression Sister Relation Status Comments Father Maternal Aunt Maternal Grandfather Maternal Grandmother Mother Paternal Grandmother Sister Social History Tobacco Use Types Packs/Day Years Used Date Smoking Tobacco: Every Day Comments:1 PPD 20+ YEARS Alcohol Use Standard Drinks/Week Comments Yes 0 (1 standard drink = 0.6 oz pur e alcohol) OCCASIONAL Comments Unknown Sex and Gender Information Value Date Recorded Sex Assigned at Not on file Legal Sex Female 8:33 PM CDT Gender Identity Not on file Sexual Orientation Lesbian or Murry 05/23/2019 4: 35 PM CDT Occupation Industry Job Start Date Job End Date Not on file Not on file Not on file Not on file Last Filed Vital Signs Vital Sign Reading Time Taken Comments Blood Pressure 110/72 05/24/2019 9:12 AM CDT Pulse 76 04/17/2018 11:10 AM CDT Temperature 36.8 C (98.3 F) 05/24/2019 9:12 AM CDT Respiratory Rate - - Oxygen Saturation - - Inhaled Oxygen Concentration - - Weight 117 kg (258 lb) 05/24/2019 9:12 AM CDT Height 168.3 cm (5' 6.25 ) 04/17/2018 11:10 AM C DT Body Mass Index 41.33 04/17/2018 11:10 AM CDT Plan of Treatment Health Maintenance Due Date Last Done Comments Annual Physical 1984 Pneumococcal Vaccine: Pediat rics (0 to 5 Years) and At-Risk Patients (6 to 64 Years) (1 of 2 - PCV) 1987 Hepatitis C 1999 Hepatitis B Vaccines (1 of 3 - 19+ 3-dose series) 2000 Cervical Cancer Screening Pa p with HPV Testing (Age 30 to 64) Every 5 Years 2011 Cervical Cancer Screening Pa p Smear (Age 30 to 64) Every 3 Years 04/17/2021 04/17/2018 Cervical Cancer Screening with HPV 04/17/2021 DTaP, Tdap and Td Vaccines ( 2 - Td or Tdap) 09/11/2021 09/11/2011 COVID-19 Vaccine (2023-2 5 season) 2024 Mammogram Screening 06/07/2024 06/07/2022 Influenza Adult (#1) 2024 HPV Vaccines Aged Out No longer eligi ble based on patient's age to complete this topic Meningococcal B Vaccine Aged Out No l onger eligible based on patient's age to complete this topic Meningococcal Vaccine Aged Out No julia sg eligible based on patient's age to complete this topic RSV Immunizations Under 20 Months Aged Out No longer eligible based on patient's age to complete this topic Procedures Procedure Name Priority Date/Time Associated Diagnosis Comments MG SCREENING W TITA SHELLEY DIGI Routine 06/07/2022 2:51 PM CDT Visit for screening mammogram THINPREP IMAGING SYSTEM PAP Routine 04/17/2018 11:56 AM CDT from Last 3 Months or Most Recently Relevant to Health Maintenance Results * MG SCREENING W TITA SHELLEY DIGI (06/07/2022 2:51 PM CDT) Anatomical Region Laterality Modality Breast Bilateral Mammography 06/07/2022 5:57 PM CDT Impressions 06/07/2022 5:59 PM CDT IMPRESSION: Right breast mass as described. Additional diagnostic imaging is recommended for more complete assessment. Recommendation: 1: Further imaging Right Return for Routine Follow-Up: No Assessment: ACR BI-RADS Category 0 - Need additional imaging. Ordered By: KERRIE RAYMOND Interpreted By: Joe Fuller MD, 06/07/2022 5:57 PM Narrative 06/07/2022 5:59 PM CDT Examination: Digital screening mammogram with CAD. Clinical history: Asymptomatic patient presents for routine screening. Baseline. Comparison: None. Technique: Bilateral digital mammograms. The exam was interpreted with the use of a computer-aided detection (CAD) system. Additional 3-D tomosynthesis images were acquired. Tissue density: The breast tissue contains scattered fibroglandular densities. Findings: The breasts demonstrate mixed fat and fibroglandular tissue. The left breast is unremarkable. On the right MLO view, there is an approximately 1.4 x 0.9 cm smoothly marginated mass in the axillary tail which may represent a lymph node or cyst but requires additional diagnostic imaging on this baseline exam. The right breast is otherwise unremarkable. us Kerrie Carlottahamzah Raymond ABA THERAPIST MAMMO Fin al Result * THINPREP IMAGING SYSTEM PAP (04/17/2018 11:56 AM CDT) Report Received CYTOPATHOLOGY - GYNECOLOGIC REPORT Diagnosis: TEST NAME: THINPREP PAP WITH WOOD ROUTER INTERPRETATION/RES ULT: NEGATIVE FOR INTRAEPITHELIAL LESION OR MALIGNANCY. THE ABSENCE OF AN ENDOCERVICAL COMPONENT WAS CONFIRMED BY AN ADDITIONAL SCREENER. STATEMENT OF ADEQUACY: SATISFACTORY FOR EVALUATION; ENDOCERVICAL/TRANS FORMATION ZONE COMPONENT ABSENT. MAYTE KUMAR(ASCP) 04/23/2018 Report Electronically Signed Specimen: THINPREP PAP WITH WOOD ROUTER Clinical Diagnosis and History Date of Last Menstrual Period: 04/02/18 Specimen Source: Cervical/Endocervi marcelino PAP SMEARS ARE SCREENING TESTS SUBJECT TO BOTH FALSE NEGATIVE AND FALSE POSITIVE RESULTS EVIDENCED BY DATA PUBLISHED IN THE MEDICAL LITERATURE. YOUR PATIENT'S RESULT SHOULD BE INTERPRETED IN THIS CONTEXT, TOGETHER WITH THE PATIENT'S HISTORY AND CLINICAL FINDINGS. TOUCHWORKS TO EPIC CONVERSION 04/17/2018 11:5 6 AM CDT 04/17/2018 11:56 AM CDT Narrative TOUCHWORKS TO EPIC CONVERSION - 04/23/2018 5:09 PM CDT Order Comment: Report: [id number] Result Communication: No patient communication needed at this time us Ivana Soto DO PATHOLOGY/CYTOLOGY ORDERABLE S Final Result TOUCHWORKS TO EPIC CONVERSION from Last 3 Months or Most Recently Relevant to Health Maintenance Insurance AETNA Care Teams Food Mobile Driver Relationship Specialty Start Date End Date Kerrie Raymond NP [address] [place] [address] PCP - General Nurse Practitioner Family 05/19/22
--- OUTSIDE RECORDS SUMMARY | 2024-10-24 16:58 | XMS_ITS | Referral Summary ---
Author Organization [facility] Address [address] [place] [address] Care Team Providers Care Hadoop Administrator Name Role Phone Unavailable Primary Care Provider Unavailabl e Source Comments [facility],non-owned Affiliates and Associated Physician Practices is amultiple site organization consisting of ambulatory clinics and hospital sitesin [place], [place], [place] and [place]. This disclosure is being madepursuant to the Care Everywhere program and may not contain all informatio navailable regarding this patient. Last updated 18.[facility] Allergies No known active allergies Medications * [...] from birthweights. I advised Jm that the [place] [employer]stetrics and Gynecology recommends delivery [...] glucose measurements - Close contact with our adult educator to optimize glycemic control on at [...] , limited weight gain is recommended. The [place] of Medicine recommends a total weight gain [...] Plan (12/30/2020 6:10 PM CDT): I commended Romerojermain Mcneill on her decreased smoking and encouraged [...] Infection. 03/26/21 MRI [facility] brain done at [facility]...results pending. Assessment & Plan (04/14/2021 12:26 PM [...] Records requested from PCP today. 3. Notify Ice Cream Machine Operator of any falls. Wear supportive shoes. Assessment [...] 3. DVT warnings reviewed again. 4. Notify Ice Cream Machine Operator of any falls. Wear supportive shoes. Assessment [...] strategies that could be beneficial. 2. Notify sales research analyst of the use of sertraline if continued into the 3rd trimester 1. [place] would benefit from increased supervision in the [...] such as journaling, meditation, yoga. 3. Notify sales research analyst of the use of sertraline if continued into the 3rd trimester 4. would benefit from increased supervision in the 1st 48 hr of life Assessment & Plan (01/27/2021 2:28 PM CDT): Intermittent anxiety with sertraline. Denies mood exacerbation. MFM recommendations: 1. Encouraged to establish with counselor. 2. Notify sales research analyst of the use of sertraline if continued [...] recommend a mental health counselor 3. notify sales research analyst of the use of sertraline if continued into the 3rd trimester 4. would benefit from increased supervision in the 1st 48 hr of life Polycystic ovarian disease Overview (12/30/2020): Told that she did not ovulate regularly. Resolved Problems Problem Noted Date Diagnosed Date Resolved Date Supervision of normal first 12/28/2020 12/28/2020 Overview (12/28/2020): Dating 11/12/20 @ 9w4d = JG 06/13/21 Social History Tobacco Use Types Packs/Day Years [...] 12/30/2020 1:47 PM CDT Plan of Treatment Not on file
--- OUTSIDE RECORDS SUMMARY | 2024-10-24 17:24 | XMS_ITS | Referral Summary ---
Author Organization [facility] [address] [place] [address] Care Team Providers Care Health Careers Instructor Name Role Phone Izaiah Corrales Primary Care Provider [phone] Allergies Active Allergy Reactions Criticality Noted Date [...] from birthweights. I advised Jm that the [place] [employer]st[employer] and Gynecology recommends delivery [...] glucose measurements - Close contact with our product development specialist to optimize glycemic control on at least [...] Infection. 03/26/21 MRI of brain done at [facility]...results pending. Last Assessment & Plan: See above [...] Records requested from PCP today. 3. Notify Coremaking Machine Operator of any falls. Wear supportive shoes. Allergic [...] strategies that could be beneficial. 2. Notify planner/scheduler of the use of sertraline if continued [...] on file Legal Sex Female 9:18 AM GUEST SERVICE AIDE Gender Identity Not on file Sexual Orientation [...] cm (5' 7 ) 09/18/2023 10:16 AM GUEST SERVICE AIDE Body Mass Index 39.94 05/26/2023 11:47 AM CDT Plan of Treatment Not on file Medical Devices Implanted Type Area Rigging Worker Device Identifier Shelf Expiration Date Model / Serial / Lot [employer] Ortholoc 2.4mm 10mm Lock Forefoot Screw Bone Titanium Nitride [id number] - [id number] Implanted:Qty : 1 on 05/26/2023 by Edwar Kate Jr., MD at [facility] Right: Metatarsal [employer] [id number] / / [employer] Ortholoc 3di W5.5 Mm X H1.3 Mm 6 Hole Low Profile Straight Plate [id number] - [id number] Implanted:Qty : 1 on 05/26/2023 by Edwar Kate Jr., MD at [facility] Right: Metatarsal [email or web address] [id number] / / [employer] Ortholoc 2.4mm 16mm Lock Forefoot Screw Bone Titanium Nitride [id number] - [id number] Implanted:Qty : 1 on 05/26/2023 by Edwra Kate Jr., MD at [facility] Right: Metatarsal [employer] [id number] / / [email or web address] Ortholoc 2.4mm 14mm Nonlock Forefoot Screw Bone Titanium Nitride [id number] - [id number] Implanted:Qty : 1 on 05/26/2023 by Edwar Kate Jr., MD at [facility] Right: Metatarsal [employer] [id number] / / [employer] Ortholoc 2.4mm 16mm Nonlock Forefoot Screw Bone Titanium Nitride [id number] - [id number] Implanted:Qty : 2 on 05/26/2023 by Edwar Kate Jr., MD at [facility] Right: Metatarsal [employer] [id number] / / Procedures Procedure Name Priority Date/Time Associated Diagnosis Comments HEMOGLOBIN A1C Routine 06/16/2014 10:15 AM CDT from Last 3 Months or Most Recently Relevant to Health Maintenance Results * Hemoglobin A1c (06/16/2014 10:15 AM CDT) Hemoglobin A1c % 5.7 4.8 - 5.9 % 06/16/2014 12:39 PM CDT [facility] HISTORICAL RESULTS Comment: As of 2010 Method: REGGIE Srinivasan 6000 using turbidometric inhibition immunoassay procedure. Results obtained are comparable to results obtained using previous methodology (HPLC). [place] [employer] Association recommends that the goal of therapy should be an A1C hemoglobin of <7%. Reevaluate the treatment regimen in patients with an A1C >8%. 06/16/2014 10:1 5 AM CDT 06/16/2014 10:41 AM CDT Francisco Dhaliwal MD LAB BLOOD ORDERABLES Final Result [facility] HISTORICAL RESULTS from Last 3 Months or Most Recently Relevant to Health Maintenance Insurance AETNA BETTER TH PR AETNA BETTER TH PR AETNA BETTER [facility] Care Teams Health Careers Instructor Relationship Specialty Start Date End Date Izaiah Corrales PA [address] [place] [address] PCP - General 03/26/21
--- OUTSIDE RECORDS SUMMARY | 2024-10-24 17:24 | XMS_ITS | Clinical Summary ---
Author Organization [facility] Address [address] [place] [address] Care Team Providers Care Pattern Repair Person Name Role Phone Kerrie Raymond NP Primary [...] 04/17/2018 Anxiety 04/17/2018 Depression 04/17/2018 Morbid obesity ([facility]) 04/17/2018 PCOS (polycystic ovarian syndrome) 04/17/2018 Reactive [...] is otherwise unremarkable. us Kerrie Carlottahamzah Raymond RN VASCULAR MAMMO Fin al Result * THINPREP IMAGING SYSTEM PAP (04/17/2018 11:56 AM CDT) Report Received CYTOPATHOLOGY - GYNECOLOGIC REPORT Diagnosis: TEST NAME: THINPREP PAP WITH DERRICK BOAT OPERATOR INTERPRETATION/RES ULT: NEGATIVE FOR INTRAEPITHELIAL LESION OR MALIGNANCY. THE ABSENCE OF AN ENDOCERVICAL COMPONENT WAS CONFIRMED BY AN ADDITIONAL SCREENER. STATEMENT OF ADEQUACY: SATISFACTORY FOR EVALUATION; ENDOCERVICAL/TRANS FORMATION ZONE COMPONENT ABSENT. MAYTE KUMAR(ASCP) 04/23/2018 Report Electronically Signed Specimen: THINPREP PAP WITH DERRICK BOAT OPERATOR Clinical Diagnosis and History Date of Last [...] 04/23/2018 5:09 PM CDT Order Comment: Report: [id number] Result Communication: No patient communication needed at this time us Ivana Soto DO PATHOLOGY/CYTOLOGY ORDERABLE S Final Result TOUCHWORKS TO EPIC CONVERSION from Last 3 Months or Most Recently Relevant to Health Maintenance Insurance AETNA Care Teams Pattern Repair Person Relationship Specialty Start Date End Date Kerrie Raymond NP [address] [place] [address] PCP - General Nurse Practitioner Family 05/19/22
--- OUTSIDE RECORDS SUMMARY | 2024-10-24 17:24 | XMS_ITS | Clinical Summary ---
Author Organization [facility] [employer] Address [address] [place] [address] Care Team Providers Care Firmware Test Engineer Name Role Phone Unavailable Primary Care Provider Unavailabl e Source Comments [facility] [employer],non-owned Affiliates and Associated Physician Practices is amultiple site organization consisting of ambulatory clinics and hospital sitesin [place] and [place]. This disclosure is being madepursuant to the Care Everywhere program and may not contain all information available regarding this patient. Last updated 18.[employer] Allergies No known active allergies Medications * [...] from birthweights. I advised Jm that the [place] [employer]stetrics and Gynecology recommends delivery [...] glucose measurements - Close contact with our personal development educator to optimize glycemic control on at [...] , limited weight gain is recommended. The [place] of Medicine recommends a total weight gain [...] Infection. 03/26/21 MRI of brain done at [facility]...results pending. Assessment & Plan (04/14/2021 12:26 [...] Records requested from PCP today. 3. Notify Regional Manager of any falls. Wear supportive shoes. Assessment [...] 3. DVT warnings reviewed again. 4. Notify Regional Manager of any falls. Wear supportive shoes. Assessment [...] strategies that could be beneficial. 2. Notify lumber straightened of the use of sertraline if continued into the 3rd trimester 1. [place] would benefit from increased supervision in the [...] such as journaling, meditation, yoga. 3. Notify lumber straightened of the use of sertraline if continued into the 3rd trimester 4. would benefit from increased supervision in the 1st 48 hr of life Assessment & Plan (01/27/2021 2:28 PM CDT): Intermittent anxiety with sertraline. Denies mood exacerbation. MFM recommendations: 1. Encouraged to establish with counselor. 2. Notify lumber straightened of the use of sertraline if continued [...] recommend a mental health counselor 3. notify lumber straightened of the use of sertraline if continued [...]
--- OUTSIDE RECORDS SUMMARY | 2024-10-24 17:24 | XMS_ITS | Referral Summary ---
Author Organization [facility] [employer] Address [address] [place] [address] Care Team Providers Care Computing Services Director Name Role Phone Unavailable Primary Care Provider Unavailabl e Source Comments [facility] [employer]non-owned Affiliates and Associated Physician Practices is amultiple site organization consisting of ambulatory clinics and hospital sitesin [place], [place], [place] and [place]. This disclosure is being madepursuant to the Care Everywhere program and may not contain all informatio navailable regarding this patient. Last updated 18.[facility] [employer] Allergies No known active allergies Medications * [...] from birthweights. I advised Jm that the [place] [employer] Obstetrics and Gynecology recommends delivery [...] glucose measurements - Close contact with our clinical educator to optimize glycemic control on at [...] , limited weight gain is recommended. The [place] of Medicine recommends a total weight gain [...] Infection. 03/26/21 MRI of brain done at [facility]...results pending. Assessment & Plan (04/14/2021 12:26 [...] Records requested from PCP today. 3. Notify Steam Cleaning Machine Operator of any falls. Wear supportive [...] 3. DVT warnings reviewed again. 4. Notify Steam Cleaning Machine Operator of any falls. Wear supportive [...] strategies that could be beneficial. 2. Notify utilization supervisor of the use of sertraline if continued into the 3rd trimester 1. [place] would benefit from increased supervision in the [...] such as journaling, meditation, yoga. 3. Notify utilization supervisor of the use of sertraline if continued into the 3rd trimester 4. would benefit from increased supervision in the 1st 48 hr of life Assessment & Plan (01/27/2021 2:28 PM CDT): Intermittent anxiety with sertraline. Denies mood exacerbation. MFM recommendations: 1. Encouraged to establish with counselor. 2. Notify utilization supervisor of the use of sertraline if continued [...] recommend a mental health counselor 3. notify utilization supervisor of the use of sertraline if continued [...]
--- OUTSIDE RECORDS SUMMARY | 2024-10-24 17:24 | XMS_ITS | Clinical Summary ---
Author Organization [facility] [address] [place] [address] Care Team Providers Care Manager Non Profit Name Role Phone Izaiah Corrales Primary Care Provider [phone] Allergies Active Allergy Reactions Criticality Noted Date [...] from birthweights. I advised Jm that the [place] [employer]stetrics and Gynecology recommends delivery [...] measurements - Close contact with our clinical trial educator to optimize glycemic control on at [...] Infection. 03/26/21 MRI of brain done at [facility]...results pending. Last Assessment & Plan: See [...] Records requested from PCP today. 3. Notify Finding Fastener of any falls. Wear supportive shoes. Allergic [...] strategies that could be beneficial. 2. Notify bar host/hostess of the use of sertraline if continued [...] on file Legal Sex Female 9:18 AM TARGET TRIMMER Gender Identity Not on file Sexual Orientation [...] cm (5' 7 ) 09/18/2023 10:16 AM TARGET TRIMMER Body Mass Index 39.94 05/26/2023 11:47 AM [...] this topic Medical Devices Implanted Type Area Sole Stitcher Hand Device Identifier Shelf Expiration Date Model / Serial / Lot [employer] Ortholoc 2.4mm 10mm Lock Forefoot Screw Bone Titanium Nitride [id number] - [id number] Implanted:Qty : 1 on 05/26/2023 by Edwar Kate Jr., MD at [facility] Right: Metatarsal [employer] [id number] / / [employer] Ortholoc 3di W5.5 Mm X H1.3 Mm 6 Hole Low Profile Straight Plate [id number] - [id number] Implanted:Qty : 1 on 05/26/2023 by Edwar Kate Jr., MD at [facility] Right: Metatarsal [employer] [id number] / / [employer] Ortholoc 2.4mm 16mm Lock Forefoot Screw Bone Titanium Nitride [id number] - [id number] Implanted:Qty : 1 on 05/26/2023 by Edwar Kate Jr., MD at [facility] Right: Metatarsal [employer] [id number] / / [employer] Ortholoc 2.4mm 14mm Nonlock Forefoot Screw Bone Titanium Nitride [id number] - [id number] Implanted:Qty : 1 on 05/26/2023 by Edwar Kate Jr., MD at [facility] Right: Metatarsal [employer] [id number] / / [employer] Ortholoc 2.4mm 16mm Nonlock Forefoot Screw Bone Titanium Nitride [id number] - [id number] Implanted:Qty : 2 on 05/26/2023 by Edwar Kate Jr., MD at [facility] Right: Metatarsal [employer] [id number] / / Procedures Procedure Name Priority Date/Time Associated Diagnosis Comments HEMOGLOBIN A1C Routine 06/16/2014 10:15 AM CDT from Last 3 Months or Most Recently Relevant to Health Maintenance Results * Hemoglobin A1c (06/16/2014 10:15 AM CDT) Hemoglobin A1c % 5.7 4.8 - 5.9 % 06/16/2014 12:39 PM CDT [facility] HISTORICAL RESULTS Comment: As of 2010 Method: REGGIE Srinivasan 6000 using turbidometric inhibition immunoassay procedure. Results obtained are comparable to results obtained using previous methodology (HPLC). [place] Diabetes Association recommends that the goal of therapy should be an A1C hemoglobin of <7%. Reevaluate the treatment regimen in patients with an A1C >8%. 06/16/2014 10:1 5 AM CDT 06/16/2014 10:41 AM CDT Francisco Dhaliwal MD LAB BLOOD ORDERABLES Final Result [facility] HISTORICAL RESULTS from Last 3 Months or Most Recently Relevant to Health Maintenance Insurance [facility] AETNA [facility] Care Teams Manager Non Profit Relationship Specialty Start Date End Date Izaiah Corrales PA [address] [place] [address] PCP - General 03/26/21
--- OUTSIDE RECORDS SUMMARY | 2024-10-24 17:24 | XMS_ITS | Encounter Summary ---
Author Organization [facility] Healthcare Address [address] [place] [address] Care Team Providers Care Medical Device Assembler Name Role Phone Izaiah Corrales Primary Care Provider Encounter Details Date Type Department Care Team (Late st Contact Info) Description 06/30/2023 10:18 AM CDT Hospital Encounter [facility] [id number] [place] [phone] Social History Tobacco Use Types Packs/Day [...] on file Legal Sex Female 9:18 AM BILINGUAL INTERPRETER Gender Identity Not on file Sexual Orientation [...] on filedocumented in this encounter Care Teams Medical Device Assembler Relationship Specialty Start Date End Date Izaiah Corrales PA [address] [place] [address] PCP - General 03/26/21 documented as of this encounter
--- OUTSIDE RECORDS SUMMARY | 2024-10-24 17:24 | XMS_ITS | Patient Health Summary ---
Author Organization [facility] Address [address] [facility] [place] [address] Care Team Providers Care Hospital Insurance Representative Name Role Phone Unavailable Primary Care Provider Unavailabl e Note from [facility],non-owned Affiliates and Associated Physician Practices is amultiple site organization consisting of ambulatory clinics and hospital sitesin [place], [place], [place] and [place]. This disclosure is being madepursuant to the Care Everywhere program and may not contain all information available regarding this patient. Last updated 18.[facility] Allergies No known active allergies Medications [...] PHONE: FAX: Pat. Name: CHAITANYA IBARRA. No: [id number] Study Date: 05/12/2021 1:53pm , Age: 07 1980, 41 Height: 67 in Weight: 260 lb LMP: Unknown GA by Base: 35w3d JG: 06/13/2021 GA by US: 33w4d JG: 06/26/2021 GA Selected: 35w3d (From [facility]) JG: 06/13/2021 Referring MD: Justyn Ibanez MD Medical Doctor Nuclear Medicine: Marisol Arteaga, RDMS, RDCS CPT4: [id number] BMI: 40.72 Hist/Ind: H/O acute disseminated encephelomyelitis AMA Obesity III GDM MEASUREMENTS & AGE GROWTH EVALUATION Measurement GA Range Srce %for GA Ratios ----- ---- ------- BPD 8.7 cm 35w1d (65r2s-16r5j) Hadl BPD 46% FL/BPD 0.72 (0.71 - 0.87) HC 31.7 cm 35w5d (77d8m-22n9e) Hadl HC 21% FL/AC 0.22 (0.20 - 0.24) AC 29.3 cm 33w2d (10r6s-01o1e) Hadl AC 7% HC/AC 1.08 (0.93 - 1.12) FL 6.3 cm 32w4d (90t2k-79e1b) Hadl FL 1% CI 0.79 (0.70 - 0.86) HL 5.7 cm 33w0d (78l1e-44c3p) Oneil HL 8% RRad 4.7 cm (20z0x-00q9i) Malathi RRad36% RUln 5.4 cm 34w0d (93b6j-03b1t) Oneil RUln27% RTib 5.5 cm 32w2d (18q3i-62c7l) Oneil RTib<05 RFib 5.4 cm (47j3x-22y7c) aMlathi RFib27% GA for sonogram 33w4d (42c6o-69d2w) Weight Estimate: based on (BPD,HC,AC,FL) Hadlock Weight: [...] Signature> 05/12/2021 03:34pm R Francisco Ibanez MD [facility] ORDERABLES * PATHOLOGY TISSUE FOR DERMATOLOGY [...] a non oriented ellipse of skin measuring 91m66u6uv. The epidermal surface is unremarkable. The margin [...] out by Mita Toney M.D. 06/27/2014 1:01:22PM [facility] Comment: Performed at: Dermatopathology Laboratory [facility] Department of Dermatology [address] [place] [address] 5th [place] [address] Phone number: [phone] FAX: [phone] 06/23/2014 06/26/2014 Francisco Dhaliwal MD LAB - PATHOLOGY/CYTO LOGY ORDERABLES [facility] [address] [place] [address]. [facility] [place] [address], [facility] [phone]
[2024-10-24 17:41] LABS: SARS-CoV-2 RNA PCR Negative (Negative)
[2024-10-24 17:42] LABS: Influenza A QL RT-PCR Positive (Negative); Influenza B QL RT-PCR Negative (Negative); RSV RNA, RT-PCR Negative (Negative)
--- NOTE | 2024-10-24 17:47 | ED_ITS ---
HPI - URI/Sore Throat General Chief Complaint: Upper Respiratory Infection Stated Complaint: URI Time Seen by Provider: 10/24/24 17:01 Source: patient Mode of arrival: ambulatory Limitations: no limitations History of Present Illness HPI Narrative: this is a 44-year-old female with flu-like symptoms with nasal congestion fever runny nose with no shortness of breath no audible wheezing no abdominal pain no nausea vomiting no diarrhea constipation. MD elicited complaint: fever, rhinorrhea and nasal congestion Onset (ago): day(s) Related Data Home Medications ?Medication ?Instructions ?Recorded ?Confirmed ?Last Taken ?Type cetirizine 10 mg capsule (Zyrtec) 10 mg PO DAILY 05/25/21 08/01/23 07/18/21 History bupropion HCl 300 mg 24 hr tablet, 300 mg PO DAILY 05/13/23 08/01/23 Unknown History extended release fluoxetine 40 mg capsule 40 mg PO DAILY 05/13/23 08/01/23 Unknown History gabapentin 300 mg capsule 300 mg PO DAILY 05/13/23 08/01/23 Unknown History Allergies Allergy/AdvReac Type Severity Reaction Status Date / Time acetaminophen (From Vicodin) AdvReac Hives Verified 10/24/24 17:14 hydrocodone (From Vicodin) AdvReac Hives Verified 10/24/24 17:14 Review of Systems Review of Systems: All systems reviewed & are unremarkable except as noted in HPI and below PMFSH Past Medical History Medical History Depression affecting IUP (intrauterine ), incidental Morbid obesity with BMI of 40.0-44.9, adult Family History Family History Sibling Anxiety Depression Mother Anxiety Depression Diabetes mellitus Grandparent Heart disease Diabetes mellitus Social History Social History Smoking packs per day: 1 Smoking cigarettes per day: 20.0 Years smoked: 25 Smoking pack-years: 25.00 Smoking status: Current every day smoker Tobacco type: cigarettes Second hand tobacco smoke exposure: Yes Alcohol intake: never Substance use: current Substance use type: marijuana Other substance usage details: SMOKE Last use: 07/11/21 Living arrangements: with family Gender identity (if verbalized by the patient): Female Sexual Orientation (if Verbalized by the Patient): Straight or Heterosexual Spiritual care concerns: No Exam Const: General: healthy appearing and no acute distress Nutritional Appearance: well nourished Orientation/consciousness: patient oriented x3 Limitations: no limitations HENMT: Head: normal to inspection Neck: Neck: normal visual inspection, no lymphadenopathy and no meningeal signs Chest: Chest palpation & inspection: normal inspection of the chest Resp: Effort & Inspection: normal respiratory effort Auscultation: clear to auscultation bilaterally Cardio: Rate: regular rate Rhythm: regular rhythm Course Course Emergency Course: Patient has is positive for influenza A. Vital Signs Vital signs: Vital Signs Temperature 36.5 C 10/24/24 16:55 Pulse Rate 86 10/24/24 16:55 Respiratory Rate 18 10/24/24 16:55 Blood Pressure 124/68 10/24/24 16:55 Pulse Oximetry 96 10/24/24 16:55 Oxygen Delivery Room Air 10/24/24 16:55 Temperature 36.5 C 10/24/24 16:55 Pulse Rate 86 10/24/24 16:55 Respiratory Rate 18 10/24/24 16:55 Blood Pressure 124/68 10/24/24 16:55 Pulse Oximetry 96 10/24/24 16:55 Oxygen Delivery Room Air 10/24/24 16:55 MDM - URI/Sore Throat Lab Data Labs: Lab Results 10/24/24 Range/Units 17:01 Influenza A (RT-PCR) Positive A (Negative) Influenza B (RT-PCR) Negative (Negative) RSV (RT-PCR) Negative (Negative) SARS-CoV-2 RNA (RT-PCR) Negative (Negative) Critical Care Time Critical Care Time Critical Care Time: No Discharge Plan Discharge Clinical Impression: Influenza Patient Disposition: Home, Self-Care Condition: Stable Instructions: Antibiotic Form, Influenza (ED) Additional Instructions: advised patient to take medication as prescribed, drink plenty of fluids Tylenol or Motrin and follow with primary in 1 week for further evaluation treatment. Patient Language: Lithuanian Prescriptions: New oseltamivir [Tamiflu] 75 mg capsule 75 mg PO Q12H 5 Days Qty: 10 0RF No Action oxycodone-acetaminophen [Percocet] 5-325 mg tablet 1 tablet PO Q6H PRN (Reason: pain) Qty: 14 0RF amoxicillin-pot clavulanate 875-125 mg tablet 1 tablet PO Q12H 10 Days Qty: 20 0RF fluoxetine 40 mg capsule 40 mg PO DAILY gabapentin 300 mg capsule 300 mg PO DAILY bupropion HCl 300 mg tablet extended release 24 hr 300 mg PO DAILY oxycodone-acetaminophen [Percocet] 5-325 mg tablet 1 tablet PO Q6H PRN (Reason: pain) Qty: 10 0RF Zyrtec 10 mg Capsule 10 mg PO DAILY Follow-up/Referrals: Candice,MD Salty [Primary Care Provider] - Time of Disposition: 17:49
== END 2024-10-24 17:55 | disposition home or self-care (01) ==
PROVIDERS: Emergency Provider Emergency Medicine; PCP Family Medicine
DX: J11.1 Influenza due to unidentified influenza virus with other respiratory manifestations (principal); F17.210 Nicotine dependence, cigarettes, uncomplicated; Z20.822 Contact with and (suspected) exposure to COVID-19
CPT/HCPCS: 87637; 99283

== ENCOUNTER 2024-10-30 11:29 | Emergency (ER) | payer MEDICAID, SELFPAY ==
--- NOTE | ~2024-10-30 | XR_ITS ---
EXAMINATION: XR chest 1V portable DATE: 10/30/2024 12:07 INDICATION: Cough with mucopurulent sputum TECHNIQUE: frontal view of the chest was obtained. COMPARISON: None FINDINGS: The lungs are clear with no focal airspace opacities, pulmonary edema, pleural effusion or pneumothor ax. The cardiomediastinal silhouette is normal. Visualized bones and soft tissues are unremarkable. IMPRESSION: 1. Normal chest radiograph. Reviewed, dictated and finalized at location A. OGRAPHY COORDINATOR IMPRESSION: 1. Normal chest radiograph.
--- OUTSIDE RECORDS SUMMARY | 2024-10-30 11:31 | XMS_ITS | Encounter Summary ---
Author Organization [facility] Healthcare Address [address] [place] [address] Care Team Providers Care Machine Adjuster Name Role Phone Izaiah Corrales Primary Care Provider Encounter Details Date Type Department Care Team (Late st Contact Info) Description 06/30/2023 10:18 AM CDT Hospital Encounter [facility] [id number] [place] [phone] Social History Tobacco Use Types Packs/Day [...] on file Legal Sex Female 9:18 AM HAND COLLATOR Gender Identity Not on file Sexual Orientation [...] on filedocumented in this encounter Care Teams Machine Adjuster Relationship Specialty Start Date End Date Izaiah Corrales PA [address] [place] [address] PCP - General 03/26/21 documented as of this encounter
--- OUTSIDE RECORDS SUMMARY | 2024-10-30 11:31 | XMS_ITS | Clinical Summary ---
Author Organization [facility] Address [address] [place] [address] Care Team Providers Care Rewards Consultant Name Role Phone Kerrie Raymond NP Primary [...] 04/17/2018 Anxiety 04/17/2018 Depression 04/17/2018 Morbid obesity ([facility]) 04/17/2018 PCOS (polycystic ovarian syndrome) 04/17/2018 [...] is otherwise unremarkable. us Kerrie Carlottahamzah Raymond CASINO WORKER MAMMO Fin al Result * THINPREP IMAGING SYSTEM PAP (04/17/2018 11:56 AM CDT) Report Received CYTOPATHOLOGY - GYNECOLOGIC REPORT Diagnosis: TEST NAME: THINPREP PAP WITH VALUATION MANAGER INTERPRETATION/RES ULT: NEGATIVE FOR INTRAEPITHELIAL LESION OR MALIGNANCY. THE ABSENCE OF AN ENDOCERVICAL COMPONENT WAS CONFIRMED BY AN ADDITIONAL SCREENER. STATEMENT OF ADEQUACY: SATISFACTORY FOR EVALUATION; ENDOCERVICAL/TRANS FORMATION ZONE COMPONENT ABSENT. MAYTE KUMAR(ASCP) 04/23/2018 Report Electronically Signed Specimen: THINPREP PAP WITH VALUATION MANAGER Clinical Diagnosis and History Date of Last [...] 04/23/2018 5:09 PM CDT Order Comment: Report: [id number] Result Communication: No patient communication needed at this time us Ivana Soto DO PATHOLOGY/CYTOLOGY ORDERABLE S Final Result TOUCHWORKS TO EPIC CONVERSION from Last 3 Months or Most Recently Relevant to Health Maintenance Insurance AETNA Care Teams Rewards Consultant Relationship Specialty Start Date End Date Kerrie Raymond NP [address] [place] [address] PCP - General Nurse Practitioner Family 05/19/22
--- OUTSIDE RECORDS SUMMARY | 2024-10-30 11:31 | XMS_ITS | Referral Summary ---
Author Organization [facility] Address [address] [place] [address] Care Team Providers Care Tire Changer Aircraft Name Role Phone Unavailable Primary Care Provider Unavailabl e Source Comments [facility],non-owned Affiliates and Associated Physician Practices is amultiple site organization consisting of ambulatory clinics and hospital sitesin [place], [place], [place] and [place]. This disclosure is being madepursuant to the Care Everywhere program and may not contain all informatio navailable regarding this patient. Last updated 18.[facility] Allergies No known active allergies Medications * [...] from birthweights. I advised Jm that the [place] [employer]ne[employer] recommends delivery [...] glucose measurements - Close contact with our life educator to optimize glycemic control on at [...] , limited weight gain is recommended. The [place] of Medicine recommends a total weight gain [...] Infection. 03/26/21 MRI of brain done at [facility]...results pending. Assessment & Plan (04/14/2021 12:26 [...] Records requested from PCP today. 3. Notify Wirer Maintenance of any falls. Wear supportive shoes. Assessment [...] 3. DVT warnings reviewed again. 4. Notify Wirer Maintenance of any falls. Wear supportive shoes. Assessment [...] strategies that could be beneficial. 2. Notify fur glazer of the use of sertraline if continued into the 3rd trimester 1. [place] would benefit from increased supervision in the [...] such as journaling, meditation, yoga. 3. Notify fur glazer of the use of sertraline if continued into the 3rd trimester 4. would benefit from increased supervision in the 1st 48 hr of life Assessment & Plan (01/27/2021 2:28 PM CDT): Intermittent anxiety with sertraline. Denies mood exacerbation. MFM recommendations: 1. Encouraged to establish with counselor. 2. Notify fur glazer of the use of sertraline if continued [...] recommend a mental health counselor 3. notify fur glazer of the use of sertraline if continued [...]
--- OUTSIDE RECORDS SUMMARY | 2024-10-30 11:31 | XMS_ITS | Patient Health Summary ---
Author Organization [facility] Address [address] [facility] [place] [address] Care Team Providers Care Resistor Coater Name Role Phone Unavailable Primary Care Provider Unavailabl e Note from [facility],non-owned Affiliates and Associated Physician Practices is amultiple site organization consisting of ambulatory clinics and hospital sitesin [place], [place], [place] and [place]. This disclosure is being madepursuant to the Care Everywhere program and may not contain all information available regarding this patient. Last updated 18.[facility] Allergies No known active allergies Medications * [...] PHONE: FAX: Pat. Name: CHAITANYA IBARRA. No: [id number] Study Date: 05/12/2021 1:53pm , Age: 07 1980, 41 Height: 67 in Weight: 260 lb LMP: Unknown GA by Base: 35w3d JG: 06/13/2021 GA by US: 33w4d JG: 06/26/2021 GA Selected: 35w3d (From [facility]) JG: 06/13/2021 Referring MD: Justyn Ibanez MD Human Resources Coordinator: Marisol Arteaga, RDMS, RDCS CPT4: [id number] BMI: 40.72 Hist/Ind: H/O acute disseminated encephelomyelitis AMA Obesity III GDM MEASUREMENTS & AGE GROWTH EVALUATION Measurement GA Range Srce %for GA Ratios ----- ---- ------- BPD 8.7 cm 35w1d (68f6m-59n1n) Hadl BPD 46% FL/BPD 0.72 (0.71 - 0.87) HC 31.7 cm 35w5d (37r4d-20z8z) Hadl HC 21% FL/AC 0.22 (0.20 - 0.24) AC 29.3 cm 33w2d (62y3q-04o5e) Hadl AC 7% HC/AC 1.08 (0.93 - 1.12) FL 6.3 cm 32w4d (22w4n-10e4b) Hadl FL 1% CI 0.79 (0.70 - 0.86) HL 5.7 cm 33w0d (02k5w-32x0f) Oneil HL 8% RRad 4.7 cm (90d0t-49i9b) Malathi RRad36% RUln 5.4 cm 34w0d (73b0y-45q8y) Oneil RUln27% RTib 5.5 cm 32w2d (82t6k-54g9o) Oneil RTib<05 RFib 5.4 cm (56p0s-79j5y) Malathi RFib27% GA for sonogram 33w4d (33a4s-31n0s) Weight Estimate: based on (BPD,HC,AC,FL) Hadlock Weight: [...] Signature> 05/12/2021 03:34pm R Francisco Ibanez MD [facility] ORDERABLES * PATHOLOGY TISSUE FOR DERMATOLOGY [...] a non oriented ellipse of skin measuring 59w14g6zz. The epidermal surface is unremarkable. The margin [...] out by Mita Toney M.D. 06/27/2014 1:01:22PM [facility] Comment: Performed at: Dermatopathology Laboratory [facility] Department of Dermatology [address] [place] [address] 5th [place] [address] Phone number: [phone] FAX: [phone] 06/23/2014 06/26/2014 Francisco Dhaliwal MD LAB - PATHOLOGY/CYTO LOGY ORDERABLES [facility] [address] [place] [address]. [facility] [place] [address], [facility] [phone]
--- OUTSIDE RECORDS SUMMARY | 2024-10-30 11:31 | XMS_ITS | Clinical Summary ---
Author Organization [facility] Address [address] [place] [address] Care Team Providers Care In File Operator Name Role Phone Unavailable Primary Care Provider Unavailabl e Source Comments [facility]non-owned Affiliates and Associated Physician Practices is amultiple site organization consisting of ambulatory clinics and hospital sitesin [place], [place], [place] and [place]. This disclosure is being madepursuant to the Care Everywhere program and may not contain all information available regarding this patient. Last updated 18.[facility] Allergies No known active allergies Medications [...] (04/14/2021 12:23 PM CDT): GDMA2 I counseled mJ Mcneill regarding the adverse outcomes associated with [...] from birthweights. I advised Jm that the [place] [employer]st[employer] and Gynecology recommends delivery [...] glucose measurements - Close contact with our family living educator to optimize glycemic control on at [...] , limited weight gain is recommended. The [place] of Medicine recommends a total weight gain [...] Infection. 03/26/21 MRI of brain done at [facility]...results pending. Assessment & Plan (04/14/2021 12:26 PM [...] Records requested from PCP today. 3. Notify Napper Fixer of any falls. Wear supportive shoes. Assessment [...] 3. DVT warnings reviewed again. 4. Notify Napper Fixer of any falls. Wear supportive shoes. Assessment [...] strategies that could be beneficial. 2. Notify mva reactor operator head of the use of sertraline if continued into the 3rd trimester 1. [place] would benefit from increased supervision in the [...] such as journaling, meditation, yoga. 3. Notify mva reactor operator head of the use of sertraline if continued into the 3rd trimester 4. would benefit from increased supervision in the 1st 48 hr of life Assessment & Plan (01/27/2021 2:28 PM CDT): Intermittent anxiety with sertraline. Denies mood exacerbation. MFM recommendations: 1. Encouraged to establish with counselor. 2. Notify mva reactor operator head of the use of sertraline if continued [...] recommend a mental health counselor 3. notify mva reactor operator head of the use of sertraline if continued [...]
--- OUTSIDE RECORDS SUMMARY | 2024-10-30 11:32 | XMS_ITS | Referral Summary ---
Author Organization [facility] [address] Address [address] [place] [address] Care Team Providers Care Machine Stapler Name Role Phone Izaiah Corrales Primary Care Provider [phone] Allergies Active Allergy Reactions Criticality Noted Date [...] from birthweights. I advised Jm that the [place] [employer] Gyne[employer] recommends delivery [...] glucose measurements - Close contact with our train engineer to optimize glycemic control on at least [...] Infection. 03/26/21 MRI of brain done at [facility]...results pending. Last Assessment & Plan: See [...] Records requested from PCP today. 3. Notify Elementary Special Education Teacher of any falls. Wear supportive shoes. Allergic [...] strategies that could be beneficial. 2. Notify university controller of the use of sertraline if continued [...] on file Legal Sex Female 9:18 AM JAVA TECH LEAD Gender Identity Not on file Sexual Orientation [...] cm (5' 7 ) 09/18/2023 10:16 AM JAVA TECH LEAD Body Mass Index 39.94 05/26/2023 11:47 AM CDT Plan of Treatment Not on file Medical Devices Implanted Type Area Diesel Power Shovel Operator Device Identifier Shelf Expiration Date Model / Serial / Lot [employer] Ortholoc 2.4mm 10mm Lock Forefoot Screw Bone Titanium Nitride [id number] - [id number] Implanted:Qty : 1 on 05/26/2023 by Edwar Kate Jr., MD at [facility] Right: Metatarsal [employer] [id number] / / [employer] Ortholoc 3di W5.5 Mm X H1.3 Mm 6 Hole Low Profile Straight Plate [id number] - [id number] Implanted:Qty : 1 on 05/26/2023 by Edwar Kate Jr., MD at [facility] Right: Metatarsal [employer] [id number] / / [employer] Ortholoc 2.4mm 16mm Lock Forefoot Screw Bone Titanium Nitride [id number] - [id number] Implanted:Qty : 1 on 05/26/2023 by Edwar Kate Jr., MD at [facility] Right: Metatarsal [employer] [id number] / / [employer] Ortholoc 2.4mm 14mm Nonlock Forefoot Screw Bone Titanium Nitride [id number] - [id number] Implanted:Qty : 1 on 05/26/2023 by Edwar Kate Jr., MD at [facility] Right: Metatarsal [employer] [id number] / / [employer] Ortholoc 2.4mm 16mm Nonlock Forefoot Screw Bone Titanium Nitride [id number] - [id number] Implanted:Qty : 2 on 05/26/2023 by Edwar Kate Jr., MD at [facility] Right: Metatarsal [employer] [id number] / / Procedures Procedure Name Priority Date/Time Associated Diagnosis Comments HEMOGLOBIN A1C Routine 06/16/2014 10:15 AM CDT from Last 3 Months or Most Recently Relevant to Health Maintenance Results * Hemoglobin A1c (06/16/2014 10:15 AM CDT) Hemoglobin A1c % 5.7 4.8 - 5.9 % 06/16/2014 12:39 PM CDT [facility] HISTORICAL RESULTS Comment: As of 2010 Method: REGGIE Srinivasan 6000 using turbidometric inhibition immunoassay procedure. Results obtained are comparable to results obtained using previous methodology (HPLC). [place] [employer] recommends that the goal of therapy should be an A1C hemoglobin of <7%. Reevaluate the treatment regimen in patients with an A1C >8%. 06/16/2014 10:1 5 AM CDT 06/16/2014 10:41 AM CDT Francisco Dhaliwal MD LAB BLOOD ORDERABLES Final Result [facility] HISTORICAL RESULTS from Last 3 Months or Most Recently Relevant to Health Maintenance Insurance A[place] BETTER [facility] Care Teams Machine Stapler Relationship Specialty Start Date End Date Izaiah Corrales PA [address] [place] [address] PCP - General 03/26/21
--- OUTSIDE RECORDS SUMMARY | 2024-10-30 11:32 | XMS_ITS | Clinical Summary ---
Author Organization [facility] [address] [place] [id number] Care Team Providers Care Grades 1 Through 5 Teacher Name Role Phone Izaiah Corrales Primary Care Provider [phone] Allergies Active Allergy Reactions Criticality Noted Date [...] from birthweights. I advised Jm that the Citizen Of [place] College of Obstetrics and Gynecology recommends delivery [...] measurements - Close contact with our certified lactation educator to optimize glycemic control on at [...] Infection. 03/26/21 MRI of brain done at [facility]...results pending. Last Assessment & Plan: See [...] Records requested from PCP today. 3. Notify Keyboard Action Assembler of any falls. Wear supportive shoes. Allergic [...] strategies that could be beneficial. 2. Notify general ledger accountant of the use of sertraline if continued [...] on file Legal Sex Female 9:18 AM INDUSTRIAL MAINTENANCE MANAGER Gender Identity Not on file Sexual Orientation [...] cm (5' 7 ) 09/18/2023 10:16 AM INDUSTRIAL MAINTENANCE MANAGER Body Mass Index 39.94 05/26/2023 11:47 AM [...] this topic Medical Devices Implanted Type Area Media Sales Representative Device Identifier Shelf Expiration Date Model / Serial / Lot [employer] Ortholoc 2.4mm 10mm Lock Forefoot Screw Bone Titanium Nitride [id number] - [id number] Implanted:Qty : 1 on 05/26/2023 by Edwar Kate Jr., MD at [facility] Right: Metatarsal [employer] [id number] / / [employer] Ortholoc 3di W5.5 Mm X H1.3 Mm 6 Hole Low Profile Straight Plate [id number] - [id number] Implanted:Qty : 1 on 05/26/2023 by Edwar Kate Jr., MD at [facility] Right: Metatarsal [employer] [id number] / / [employer] Ortholoc 2.4mm 16mm Lock Forefoot Screw Bone Titanium Nitride [id number] - [id number] Implanted:Qty : 1 on 05/26/2023 by Edwar Kate Jr., MD at [facility] Right: Metatarsal [employer] [id number] / / [employer] Ortholoc 2.4mm 14mm Nonlock Forefoot Screw Bone Titanium Nitride [id number] - [id number] Implanted:Qty : 1 on 05/26/2023 by Edwar Kate Jr., MD at [facility] Right: Metatarsal [employer] [id number] / / [employer] Ortholoc 2.4mm 16mm Nonlock Forefoot Screw Bone Titanium Nitride [id number] - [id number] Implanted:Qty : 2 on 05/26/2023 by Edwar Kate Jr., MD at [facility] Right: Metatarsal [employer] [id number] / / Procedures Procedure Name Priority Date/Time Associated Diagnosis Comments HEMOGLOBIN A1C Routine 06/16/2014 10:15 AM CDT from Last 3 Months or Most Recently Relevant to Health Maintenance Results * Hemoglobin A1c (06/16/2014 10:15 AM CDT) Hemoglobin A1c % 5.7 4.8 - 5.9 % Comment: As of 2010 Method: REGGIE Srinivasan 6000 using turbidometric inhibition immunoassay procedure. Results obtained are comparable to results obtained using previous methodology (HPLC). Citizen Of [place] Diabetes Association recommends that the goal of therapy should be an A1C hemoglobin of <7%. Reevaluate the treatment regimen in patients with an A1C >8%. 06/16/2014 10:1 5 AM CDT 06/16/2014 10:41 AM CDT Francisco Dhaliwal MD LAB BLOOD ORDERABLES Final Result [facility] HISTORICAL RESULTS from Last 3 Months or Most Recently Relevant to Health Maintenance Insurance [facility] AETNA [facility] Care Teams Grades 1 Through 5 Teacher Relationship Specialty Start Date End Date Izaiah Corrales PA [address] [place] [address] PCP - General 03/26/21
[2024-10-30 11:33] VITALS: BP 133/86; PULSE 90; RESP 16; TEMP 36.6; O2SAT 96
--- NOTE | 2024-10-30 11:41 | ED_ITS ---
HPI - URI/Sore Throat General Chief Complaint: Upper Respiratory Infection Stated Complaint: fever, cough Time Seen by Provider: 10/30/24 11:35 Source: patient Mode of arrival: ambulatory Limitations: no limitations History of Present Illness HPI Narrative: 44-year-old female, smoker with anxiety/ depression was diagnosed with influenza on 10/24/2023. She continues to have ongoing -- fever with chills -- body ache -- nasal congestion with postnasal drip -- cough with mucopurulent sputum MD elicited complaint: fever, cough, rhinorrhea and nasal congestion Onset (ago): day(s) ( 6 days) Consistency: constant Description of mucous: yellow and green Able to tolerate fluids by mouth: Yes Exacerbating factors: nothing Relieving factors: nothing Associated symptoms: fever, myalgias, rhinorrhea, nasal congestion and cough Treatments prior to arrival: none Related Data Home Medications ?Medication ?Instructions ?Recorded ?Confirmed ?Last Taken ?Type cetirizine 10 mg capsule (Zyrtec) 10 mg PO DAILY 05/25/21 08/01/23 07/18/21 History bupropion HCl 300 mg 24 hr tablet, 300 mg PO DAILY 05/13/23 08/01/23 Unknown History extended release fluoxetine 40 mg capsule 40 mg PO DAILY 05/13/23 08/01/23 Unknown History gabapentin 300 mg capsule 300 mg PO DAILY 05/13/23 08/01/23 Unknown History Allergies Allergy/AdvReac Type Severity Reaction Status Date / Time acetaminophen (From Vicodin) AdvReac Hives Verified 10/24/24 17:14 hydrocodone (From Vicodin) AdvReac Hives Verified 10/24/24 17:14 Review of Systems Review of Systems: All systems reviewed & are unremarkable except as noted in HPI and below PMFSH Past Medical History Medical History Depression affecting IUP (intrauterine ), incidental Morbid obesity with BMI of 40.0-44.9, adult Family History Family History Sibling Anxiety Depression Mother Anxiety Depression Diabetes mellitus Grandparent Heart disease Diabetes mellitus Social History Social History Smoking packs per day: 1 Smoking cigarettes per day: 20.0 Years smoked: 25 Smoking pack-years: 25.00 Smoking status: Current every day smoker Tobacco type: cigarettes Second hand tobacco smoke exposure: Yes Alcohol intake: never Substance use: current Substance use type: marijuana Other substance usage details: SMOKE Last use: 07/11/21 Living arrangements: with family Gender identity (if verbalized by the patient): Female Sexual Orientation (if Verbalized by the Patient): Straight or Heterosexual Spiritual care concerns: No Exam Narrative: vitals are stable Const: General: no acute distress Orientation/consciousness: patient oriented x3 Limitations: no limitations HENMT: Head: normal to inspection Ears: external ears normal Face/Nose /Sinus: Normal external nose present Face and sinus: normal facial exam Mouth: Yes Normal oral and palatal mucosa present Throat: posterior oropharynx normal Eyes: Conjunctivae: conjunctivae normal Pupils: Equal, round and reactive pupils present EOM: EOMs intact bilaterally Direct Ophthalmoscopy: no photophobia Neck: Neck: normal visual inspection, no lymphadenopathy and no meningeal signs Chest: Chest palpation & inspection: normal inspection of the chest Resp: Effort & Inspection: normal respiratory effort Other: bilaterally decreased breath sounds. Occasional rhonchi Cardio: Rate: regular rate Rhythm: regular rhythm GI: GI Palp: Yes Soft to palpation Auscultation: normal bowel sounds : General: Yes no CVA tenderness Skin: General skin exam: normal color Rashes: no rashes Wounds: no wounds Neuro: General: patient oriented x3, moves all extremities, no meningeal signs, no focal motor deficits and CN's II-XI intact bilaterally Cranial nerves: Yes Nystagmus not present Speech: normal speech Gait exam (Neuro): Normal gait present Extrem: General: normal to inspection and no clubbing, cyanosis or edema Psych: Mental Status: mental status grossly normal Affect: normal affect Attitude: cooperative Course Course Emergency Course: nasal congestion/postnasal drip suggestive of sinusitis cough with mucopurulent sputum. history of smoking. bronchitis with bronchospasm chest x-ray did not show any infiltrates or evidence of CHF Vital Signs Vital signs: Vital Signs Temperature 36.6 C 10/30/24 11:33 Pulse Rate 90 10/30/24 11:33 Respiratory Rate 16 10/30/24 11:33 Blood Pressure 133/86 10/30/24 11:33 Pulse Oximetry 96 10/30/24 11:33 Oxygen Delivery Room Air 10/30/24 11:33 Temperature 36.6 C 10/30/24 11:33 Pulse Rate 90 10/30/24 11:33 Respiratory Rate 16 10/30/24 11:33 Blood Pressure 133/86 10/30/24 11:33 Pulse Oximetry 96 10/30/24 11:33 Oxygen Delivery Room Air 10/30/24 11:33 MDM - URI/Sore Throat MDM Narrative Medical decision making narrative: sinusitis bronchitis Differential Diagnosis Differential diagnosis: Likely upper respiratory infection and viral infection Medical Records Attestation: I reviewed the patient's medical records. Lab Data Attestation: I reviewed the patient's lab results. Discharge Plan Discharge Clinical Impression: Sinusitis, Bronchitis Patient Disposition: Home, Self-Care Condition: Stable Instructions: Antibiotic Form, Sinusitis (ED), Acute Bronchitis (ED) Patient Language: Estonian Prescriptions: New azithromycin [Zithromax] 250 mg tablet See Rx Instructions .ROUTE .COMPLEX Qty: 6 0RF Rx Instructions: For 250 mg dose pack: take 500 mg today (day 1), then 250 mg for 4 days (days 2-5) prednisone 20 mg tablet 20 mg PO BID Qty: 7 0RF No Action oxycodone-acetaminophen [Percocet] 5-325 mg tablet 1 tablet PO Q6H PRN (Reason: pain) Qty: 14 0RF amoxicillin-pot clavulanate 875-125 mg tablet 1 tablet PO Q12H 10 Days Qty: 20 0RF oseltamivir [Tamiflu] 75 mg capsule 75 mg PO Q12H 5 Days Qty: 10 0RF fluoxetine 40 mg capsule 40 mg PO DAILY gabapentin 300 mg capsule 300 mg PO DAILY bupropion HCl 300 mg tablet extended release 24 hr 300 mg PO DAILY oxycodone-acetaminophen [Percocet] 5-325 mg tablet 1 tablet PO Q6H PRN (Reason: pain) Qty: 10 0RF Zyrtec 10 mg Capsule 10 mg PO DAILY Follow-up/Referrals: Isreal,MD Salty [Primary Care Provider] - Time of Disposition: 12:27
--- OUTSIDE RECORDS SUMMARY | 2024-10-30 12:01 | XMS_ITS | Referral Summary ---
Author Organization [facility] [employer] Address [address] [place] [address] Care Team Providers Care Blacking Machine Operator Name Role Phone Unavailable Primary Care Provider Unavailabl e Source Comments [facility] [employer],non-owned Affiliates and Associated Physician Practices is amultiple site organization consisting of ambulatory clinics and hospital sitesin [place], [place], [place] and [place]. This disclosure is being madepursuant to the Care Everywhere program and may not contain all informatio navailable regarding this patient. Last updated 18.[facility] [employer] Allergies No known active allergies Medications * [...] I advised Jm that the Citizen Of [place] College of Obstetrics and Gynecology recommends delivery [...] measurements - Close contact with our clinical staff educator to optimize glycemic control on at [...] , limited weight gain is recommended. The [place] of Medicine recommends a total weight gain [...] Infection. 03/26/21 MRI of brain done at [facility]...results pending. Assessment & Plan (04/14/2021 12:26 [...] Records requested from PCP today. 3. Notify Resident Assistant Cna of any falls. Wear supportive shoes. Assessment [...] 3. DVT warnings reviewed again. 4. Notify Resident Assistant Cna of any falls. Wear supportive shoes. Assessment [...] and dysfunctional labor, and other maternal morbidity/mortality. mJ reports that she has already had aneuploidy [...] strategies that could be beneficial. 2. Notify business employment specialist of the use of sertraline if continued into the 3rd trimester 1. [place] would benefit from increased supervision in the [...] such as journaling, meditation, yoga. 3. Notify business employment specialist of the use of sertraline if continued into the 3rd trimester 4. would benefit from increased supervision in the 1st 48 hr of life Assessment & Plan (01/27/2021 2:28 PM CDT): Intermittent anxiety with sertraline. Denies mood exacerbation. MFM recommendations: 1. Encouraged to establish with counselor. 2. Notify business employment specialist of the use of sertraline if continued [...] recommend a mental health counselor 3. notify business employment specialist of the use of sertraline if continued [...]
--- OUTSIDE RECORDS SUMMARY | 2024-10-30 12:01 | XMS_ITS | Encounter Summary ---
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
--- OUTSIDE RECORDS SUMMARY | 2024-10-30 12:01 | XMS_ITS | Clinical Summary ---
Author Organization [facility] [address] [place] [phone] Care Team Providers Care Respiratory Equipment Assistant Name Role Phone Izaiah Corrales Primary Care Provider [phone] Allergies Active Allergy Reactions Criticality Noted Date [...] from birthweights. I advised Jm that the [place] College of Obstetrics and Gynecology recommends delivery [...] glucose measurements - Close contact with our taker out to optimize glycemic control on at least [...] Infection. 03/26/21 MRI of brain done at [facility]...results pending. Last Assessment & Plan: [...] Records requested from PCP today. 3. Notify Lead Loader of any falls. Wear supportive shoes. Allergic [...] strategies that could be beneficial. 2. 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5 Mm X H1.3 Mm 6 Hole Low Profile Straight Plate [id number] - [id number] Implanted:Qty : 1 on 05/26/2023 by Edwar Kate Jr., MD at [facility] Right: Metatarsal [employer] [id number] / / [employer] Ortholoc 2.4mm 16mm Lock Forefoot Screw Bone Titanium Nitride [id number] - [id number] Implanted:Qty : 1 on 05/26/2023 by Edwar Kate Jr., MD at [facility] Right: Metatarsal [employer] [id number] / / [employer] Ortholoc 2.4mm 14mm Nonlock Forefoot Screw Bone Titanium Nitride [id number] - [id number] Implanted:Qty : 1 on 05/26/2023 by Edwar Kate Jr., MD at [facility] Right: Metatarsal [employer] [id number] / / [employer] Ortholoc 2.4mm 16mm Nonlock Forefoot Screw Bone Titanium Nitride [id number] - [id number] Implanted:Qty : 2 on 05/26/2023 by Edwar Kate Jr., MD at [facility] Right: Metatarsal [employer] [id number] / / Procedures Procedure Name Priority Date/Time [...] to results obtained using previous methodology (HPLC). [place] Diabetes Association recommends that the goal of therapy should be an A1C hemoglobin of <7%. Reevaluate the treatment regimen in patients with an A1C >8%. 06/16/2014 10:1 5 AM CDT 06/16/2014 10:41 AM CDT Francisco Dhaliwal MD LAB BLOOD ORDERABLES Final Result [facility] HISTORICAL RESULTS from Last 3 Months or Most Recently Relevant to Health Maintenance Insurance [facility] AETNA [facility] Care Teams Respiratory Equipment Assistant Relationship Specialty Start Date End Date Izaiah Corrales PA [address] [place] [address] PCP - General 03/26/21
--- OUTSIDE RECORDS SUMMARY | 2024-10-30 12:01 | XMS_ITS | Clinical Summary ---
Author Organization [facility] [employer] Address [address] [place] [address] Care Team Providers Care Stained Glass Glazier Name Role Phone Unavailable Primary Care Provider Unavailabl e Source Comments [facility] [employer],non-owned Affiliates and Associated Physician Practices is amultiple site organization consisting of ambulatory clinics and hospital sitesin [place], [place], [place] and [place]. This disclosure is being madepursuant to the Care Everywhere program and may not contain all information available regarding this patient. Last updated 18.[employer] Allergies No known active allergies Medications * [...] from birthweights. I advised Jm that the [place] College of Obstetrics and Gynecology recommends delivery [...] glucose measurements - Close contact with our hospice educator to optimize glycemic control on at [...] , limited weight gain is recommended. The [place] of Medicine recommends a total weight gain [...] Infection. 03/26/21 MRI of brain done at [facility]...results pending. Assessment & Plan (04/14/2021 12:26 [...] Records requested from PCP today. 3. Notify Paper Bags Sewing Machine Operator of any falls. Wear supportive [...] 3. DVT warnings reviewed again. 4. Notify Paper Bags Sewing Machine Operator of any falls. Wear supportive [...] strategies that could be beneficial. 2. Notify coining press operator of the use of sertraline if continued into the 3rd trimester 1. [place] would benefit from increased supervision in the [...] such as journaling, meditation, yoga. 3. Notify coining press operator of the use of sertraline if continued into the 3rd trimester 4. would benefit from increased supervision in the 1st 48 hr of life Assessment & Plan (01/27/2021 2:28 PM CDT): Intermittent anxiety with sertraline. Denies mood exacerbation. MFM recommendations: 1. Encouraged to establish with counselor. 2. Notify coining press operator of the use of sertraline if continued [...] recommend a mental health counselor 3. notify coining press operator of the use of sertraline if continued [...]
--- OUTSIDE RECORDS SUMMARY | 2024-10-30 12:01 | XMS_ITS | Referral Summary ---
Author Organization [facility] 2 Address [address] [place] [phone] Care Team Providers Care Anesthesiologist Assistant Certified Name Role Phone Izaiah Corrales Primary Care Provider Allergies Active Allergy Reactions Criticality Noted Date [...] from birthweights. I advised Jm that the [place] College of Obstetrics and Gynecology recommends delivery [...] glucose measurements - Close contact with our billet cutter to optimize glycemic control on at least [...] 03/26/21 MRI of brain done at [facility]...results pending. Last Assessment & Plan: See [...] Records requested from PCP today. 3. Notify Software Recruiter of any falls. Wear supportive shoes. Allergic [...] strategies that could be beneficial. 2. Notify brick chimney builder of the use of sertraline if continued [...] on file Legal Sex Female 9:18 AM VIDEO INTERN Gender Identity Not on file Sexual Orientation [...] cm (5' 7 ) 09/18/2023 10:16 AM VIDEO INTERN Body Mass Index 39.94 05/26/2023 11:47 AM CDT Plan of Treatment Not on file Medical Devices Implanted Type Area Escalator Operator Device Identifier Shelf Expiration Date Model / Serial / Lot [employer] Ortholoc 2.4mm 10mm Lock Forefoot Screw Bone Titanium Nitride [id number] - [id number] Implanted:Qty : 1 on 05/26/2023 by Edwar Kate Jr., MD at [facility] Right: Metatarsal [employer] [id number] / / [employer] Ortholoc 3di W5.5 Mm X H1.3 Mm 6 Hole Low Profile Straight Plate [id number] - [id number] Implanted:Qty : 1 on 05/26/2023 by Edwar Kate Jr., MD at [facility] Right: Metatarsal [employer] [id number] / / [employer] Ortholoc 2.4mm 16mm Lock Forefoot Screw Bone Titanium Nitride [id number] - [id number] Implanted:Qty : 1 on 05/26/2023 by Edwar Kate Jr., MD at [facility] Right: Metatarsal [employer] [id number] / / [employer] Ortholoc 2.4mm 14mm Nonlock Forefoot Screw Bone Titanium Nitride [id number] - [id number] Implanted:Qty : 1 on 05/26/2023 by Edwar Kate Jr., MD at [facility] Right: Metatarsal [employer] [id number] / / [employer] Ortholoc 2.4mm 16mm Nonlock Forefoot Screw Bone Titanium Nitride [id number] - [id number] Implanted:Qty : 2 on 05/26/2023 by Edwar Kate Jr., MD at [facility] Right: Metatarsal [employer] [id number] / / Procedures Procedure Name Priority Date/Time [...] to results obtained using previous methodology (HPLC). [place] Diabetes Association recommends that the goal of therapy should be an A1C hemoglobin of <7%. Reevaluate the treatment regimen in patients with an A1C >8%. 06/16/2014 10:1 5 AM CDT 06/16/2014 10:41 AM CDT Francisco Dhaliwal MD LAB BLOOD ORDERABLES Final Result [facility] HISTORICAL RESULTS from Last 3 Months or Most Recently Relevant to Health Maintenance Insurance [place] [facility] Care Teams Anesthesiologist Assistant Certified Relationship Specialty Start Date End Date Izaiah Corrales PA [address] [place] [address] PCP - General 03/26/21
--- OUTSIDE RECORDS SUMMARY | 2024-10-30 12:01 | XMS_ITS | Patient Health Summary ---
Author Organization [facility] Address [address] [place] [address] Care Team Providers Care Student Activities Director Name Role Phone Unavailable Primary Care Provider Unavailabl e Note from [facility] [place] [facility] [place]non-owned Affiliates and Associated Physician Practices is amultiple site organization consisting of ambulatory clinics and hospital sitesin [place], [place], [place] and [place]. This disclosure is being madepursuant to the Care Everywhere program and may not contain all information available regarding this patient. Last updated 18.[facility] Allergies No known active allergies Medications [...] PHONE: FAX: Pat. Name: CHAITANYA IBARRA. No: [id number] Study Date: 05/12/2021 1:53pm , Age: 07 1980, 41 Height: 67 in Weight: 260 lb LMP: Unknown GA by Base: 35w3d JG: 06/13/2021 GA by US: 33w4d JG: 06/26/2021 GA Selected: 35w3d (From [facility]) JG: 06/13/2021 Referring MD: Justyn Ibanez MD Grocery Worker: Marisol Arteaga, RDMS, RDCS CPT4: 49653,[id number],[id number] BMI: 40.72 Hist/Ind: H/O acute disseminated encephelomyelitis AMA Obesity III GDM MEASUREMENTS & AGE GROWTH EVALUATION Measurement GA Range Srce %for GA Ratios ----- ---- ------- BPD 8.7 cm 35w1d (53v9l-45w4c) Hadl BPD 46% FL/BPD 0.72 (0.71 - 0.87) HC 31.7 cm 35w5d (28v8e-70n7y) Hadl HC 21% FL/AC 0.22 (0.20 - 0.24) AC 29.3 cm 33w2d (83t9g-97p0h) Hadl AC 7% HC/AC 1.08 (0.93 - 1.12) FL 6.3 cm 32w4d (42u4y-44x4c) Hadl FL 1% CI 0.79 (0.70 - 0.86) HL 5.7 cm 33w0d (02t3i-64s1w) Oneil HL 8% RRad 4.7 cm (75i0r-65t2t) Malathi RRad36% RUln 5.4 cm 34w0d (86k5w-31b2e) Oneil RUln27% RTib 5.5 cm 32w2d (03y4v-71m6m) Oneil RTib<05 RFib 5.4 cm (79x4f-98z7x) Malathi RFib27% GA for sonogram 33w4d (73z9u-29r8y) Weight Estimate: based on (BPD,HC,AC,FL) Hadlock Weight: [...] Signature> 05/12/2021 03:34pm R Francisco Ibanez MD [facility] ORDERABLES * PATHOLOGY TISSUE FOR DERMATOLOGY [...] a non oriented ellipse of skin measuring 13w56g5pj. The epidermal surface is unremarkable. The margin [...] out by Mita Toney M.D. 06/27/2014 1:01:22PM [facility] Comment: Performed at: Dermatopathology Laboratory [facility] Department of Dermatology [address] [place] [address] [address] [place] [address] Phone number: [phone] FAX: [phone] 06/23/2014 06/26/2014 Francisco Dhaliwal MD LAB - PATHOLOGY/CYTO LOGY ORDERABLES [facility] [address] [place] [address]. [facility] [place] [address], [facility] [phone]
--- OUTSIDE RECORDS SUMMARY | 2024-10-30 12:01 | XMS_ITS | Clinical Summary ---
Author Organization [facility] Address [address] [place] [address] Care Team Providers Care Package Winder Name Role Phone Kerrie [place] NP Primary [...] 04/17/2018 Anxiety 04/17/2018 Depression 04/17/2018 Morbid obesity ([facility]) 04/17/2018 PCOS (polycystic ovarian syndrome) [...] is otherwise unremarkable. us Kerrie Carlottahamzah [place] [employer] Fin al Result * THINPREP IMAGING SYSTEM PAP (04/17/2018 11:56 AM CDT) Report Received CYTOPATHOLOGY - GYNECOLOGIC REPORT Diagnosis: TEST NAME: THINPREP PAP WITH SUPERVISOR FILTRATION INTERPRETATION/RES ULT: NEGATIVE FOR INTRAEPITHELIAL LESION OR MALIGNANCY. THE ABSENCE OF AN ENDOCERVICAL COMPONENT WAS CONFIRMED BY AN ADDITIONAL SCREENER. STATEMENT OF ADEQUACY: SATISFACTORY FOR EVALUATION; ENDOCERVICAL/TRANS FORMATION ZONE COMPONENT ABSENT. MAYTE KUMAR(ASCP) 04/23/2018 Report Electronically Signed Specimen: THINPREP PAP WITH SUPERVISOR FILTRATION Clinical Diagnosis and History Date of Last [...] 04/23/2018 5:09 PM CDT Order Comment: Report: [id number] Result Communication: No patient communication needed at this time us Ivana Soto DO PATHOLOGY/CYTOLOGY ORDERABLE S Final Result TOUCHWORKS TO EPIC CONVERSION from Last 3 Months or Most Recently Relevant to Health Maintenance Insurance [employer] Care Teams Package Winder Relationship Specialty Start Date End Date Kerrie [place] NP [address] [place] [address] PCP - General Nurse Practitioner Family 05/19/22
[2024-10-30 12:50] VITALS: BP 128/80; PULSE 82; RESP 16; TEMP 36.6; O2SAT 98
== END 2024-10-30 12:50 | disposition home or self-care (01) ==
PROVIDERS: Emergency Provider Internal Medicine Critical Care Medicine; PCP Family Medicine
DX: J32.9 Chronic sinusitis, unspecified (principal); J40 Bronchitis, not specified as acute or chronic; F17.210 Nicotine dependence, cigarettes, uncomplicated
CPT/HCPCS: 71045; 99283